=== PATIENT | male | born 1970 | race Caucasian/White ===

== ENCOUNTER 2017-10-10 09:22 | Emergency (ER) | payer MEDICARE, SELFPAY ==
[2017-10-10 09:24] VITALS: BP 162/112; PULSE 119; RESP 18; TEMP 37.2; O2SAT 99; BMI 37.8
--- NOTE | 2017-10-10 09:35 | CT_ITS ---
STUDY: CT BRAIN WITHOUT CONTRAST REASON FOR EXAM: Male, 47 years old. Headaches. Hypertension. RADIATION DOSAGE (If Supplied By Facility): CTDIvol = ( 44.99 ) mGy, DLP = ( 796.11 ) mGycm TECHNIQUE: Transaxial CT imaging of the brain was performed without administration of intravenous contrast material. Individualized dose optimization techniques were used for this CT. COMPARISON: None. FINDINGS: Normal soft tissue structures. Normal calvarium. Normal size ventricles and extra-axial spaces for the patient's age. Normal white matter tracts of the cerebral hemispheres. Normal basal ganglia and thalami. Normal brainstem. Normal cerebellum. There is no intracranial hemorrhage. There are no findings of an acute ischemic infarction. Normal visualized paranasal sinuses. CT/Brain/Head without Contrast IMPRESSION: Normal unenhanced CT scan of the brain. Electronically Signed: Hero Stanton MD at 10:38 EDT Tel [phone], Service support ,
--- NOTE | 2017-10-10 09:36 | EKG12_ITS ---
Test Reason : HYPERTENSON Blood Pressure : / mmHG Vent. Rate : 101 BPM Atrial Rate : 101 BPM P-R Int : 146 ms QRS Dur : 082 ms QT Int : 338 ms P-R-T Axes : 045 030 058 degrees QTc Int : 438 ms Sinus tachycardia Otherwise normal ECG Confirmed by RICHIE LARSON, MAURICIO ([id number]), school photograph editor SELENE BUCKLEY ([id number]) on 10/14/2017 1:47:40 PM Referred By: LELIA Confirmed By:MAURICIO QUIROZ MD
--- NOTE | 2017-10-10 09:44 | ED.VISSUMM ---
- ER Visit Summary Date of Service: 10/10/17 Chief Complaint: High blood pressure and headache History of Present Illness: The patient is a [address] Antwon Kim. He reports that he has a headache that began this morning when he woke up. Came on abruptly. It is a sharp diffuse pain that is 8 out of 10 severity. He reports he has had similar headaches multiple times in the past. States that he gets headaches approximately twice per week. He is is associated with photophobia. He has had no nausea or vomiting. No recent injury to his head. States it is 10 out of 10 at worst and 8 out of 10 currently. Patient denies any fever or chills. No numbness or weakness. No change in his vision. Physical Examination: Vitals: Stable. Afebrile. General: Well-nourished and well-developed. Head: Normocephalic atraumatic. Neck: Supple, no lymphadenopathy. No JVD. Nontender. Cardiovascular: Regular rate and rhythm. No murmurs. Respiratory: No respiratory distress. Clear to auscultation bilaterally. Abdominal: Soft, nontender, nondistended, normal bowel sounds. No guarding, rebound, or peritoneal signs. Back: Nontender. Extremities: Nontender, no edema. Skin: Normal color, no rash. Neurologic: Alert and oriented ?3. Cranial nerves II through XII are intact. Normal strength and sensation. Psych: Normal affect. Test Results: CBC is normal. Chem-7 is more for chloride [address] brain is normal. CTA head shows normal three affiliated of [place] with no aneurysm. EKG is sinus tach at [address] changes. Emergency Department Course and Treatment: Patient had an IV placed. He was given Dilaudid and Zofran for his headache. He is resting comfortably. His blood pressure has decreased from 179/97 to 150/103. Treatment Plan: Patient will be discharged instructions to follow-up with his primary care physician within a week for repeat check of his blood pressure. Return to the emergency department for any worsening symptoms. Disposition: To home in improved and stable condition. Impression: 1. Cephalgia. 2. Hypertension. This note was generated with [employer] software. It may contain incorrect words, spelling, and punctuation that were not noted in review of the chart prior to signing ED Disposition - Plan for ED Patient: Chief Complaint: Hypertension Instructions: ED HTN Established Referrals: Antwon Kim [Primary Care Provider] - 1 Week
[2017-10-10] MEDS: 0.9% Normal Saline 1,000 ML 150 ML IV (09:47)
[2017-10-10] MEDS: HYDROmorphone 1 MG/ML Syringe IV ×2 (09:47→11:16)
[2017-10-10] MEDS: Ondansetron 4 MG/2 ML Vial IV (09:47)
[2017-10-10 09:59] LABS: Absolute Lymphocyte Count 1.84 X10^3/ul (0.83-4.51); Absolute Neutrophil Count 5.7 X10^3/uL (2.0-7.7); Basophil# 0.04 X10^3/uL; Basophil% 0.5 % (0-1); Eosinophil# 0.09 X10^3/uL; Eosinophils% 1.1 % (0-5); Hematocrit 45.8 % (40-54); Lymphocyte # 1.84 X10^3/ul (4.0); Lymphocyte % 22.1 % (19-41); Mean Corp Hgb Conc 32.8 g/gl (32-36); Mean Corpuscular Hgb 29.4 pg (27.0-32.0); Mean Corpuscular Volume 89.8 fL (80-94); Mean Platelet Vol. 11.1 fl (6.2-12.0); Monocyte% 8.4 % (0-10); Neutrophil # 5.65 X10^3/uL (2.7-7.7); Neutrophil % 67.7 % (47-70); Platelet Count 157 K/mm3 (150-450); RBC Distribution Width CV 13.9 % (11.6-14.6); RBC Distribution Width SD 45.7 fl (35.1-43.9); White Blood Count 8.3 K/mm3 (4.4-11.0)
[2017-10-10 10:00] LABS: POSITIVE COUNT NO; POSITIVE DIFFERENTIAL NO; POSITIVE MORPHOLOGY NO
[2017-10-10 10:19] LABS: Anion Gap 7 (5-15); BUN 17 mg/dL (7-18); BUN/Creat Ratio 13.7 RATIO (10-20); Chloride 108 mmol/L (98-107); Creatinine, Serum 1.24 mg/dL (0.70-1.30); EST Glomerular Filtration Rate 66 mL/min (>60); Est Glom Filt Rate - Afr Amer 80 mL/min (>60); Estimated Creatinine Clearance 68.11 ml/min; Glucose 112 mg/dL (74-106); Potassium 3.7 mmol/L (3.5-5.1); Sodium Level 143 mmol/L (136-145)
[2017-10-10 10:45] VITALS: BP 179/97; PULSE 98; RESP 18; O2SAT 97
--- NOTE | 2017-10-10 11:10 | CT_ITS ---
STUDY: CTA OF THE BRAIN REASON FOR EXAM: Male, 47 years old. Headaches. Hypertension. RADIATION DOSAGE (If Supplied By Facility): CTDIvol = ( 17.48 ) mGy, DLP = ( 412.56 ) mGycm TECHNIQUE: CT angiography was performed with a multi-detector CT scanner. Data acquisition was obtained from the skull base through the vertex following intravenous administration of 100 ml of Isovue 370. MIP images were reconstructed from the axial data set. Post-processing of the angiographic images was performed, with multiplanar reformation and 3D reconstruction. Individualized dose optimization techniques were used for this CT. COMPARISON: None. FINDINGS: Normal bilateral petrous carotid arteries. Normal right cavernous carotid artery with a normal supraclinoid bifurcation. Normal left cavernous carotid artery with a normal supraclinoid bifurcation. Normal right A1 segments of the anterior cerebral artery. Normal left A1 segments of the anterior cerebral artery. Normal intact anterior communicating artery (ACOM). Normal bilateral A2 segments of the anterior cerebral arteries. Normal right M1 and M2 segments of the middle cerebral arteries, with a normal M1 bifurcation. Normal left M1 and M2 segments of the middle cerebral arteries, with a normal M1 bifurcation. Normal right posterior communicating artery (PCOM). Normal left posterior communicating artery (PCOM). Normal bilateral vertebral arteries. Normal basilar artery with a normal basilar bifurcation. The visualized bilateral superior cerebellar (SCA) arteries are normal. Normal bilateral P1, P2 and visualized P3 segments of the posterior cerebral arteries. There is no demonstrated aneurysm of the [place]. There is no demonstrated abnormality of the visualized brain. CT/CTA Head W/WO Contrast IMPRESSION: Normal [place] without a demonstrated aneurysm or hemodynamically significant stenosis. Electronically Signed: Hero Stanton MD at 12:26 EDT Tel [phone], Service support ,
[2017-10-10 11:15] VITALS: BP 163/91; PULSE 94; RESP 18; O2SAT 98
[2017-10-10 11:18] VITALS: BP 150/103; PULSE 89; RESP 16; O2SAT 98
[2017-10-10 13:30] VITALS: BP 169/128; PULSE 95; RESP 14; O2SAT 98
== END 2017-10-10 13:31 | disposition home or self-care (01) ==
PROVIDERS: Emergency Provider Emergency Medicine; Family Provider Family Medicine; PCP Family Medicine
DX: R51 Headache (principal); H53.149 Visual discomfort, unspecified; I10 Essential (primary) hypertension; Z79.899 Other long term (current) drug therapy
CPT/HCPCS: 70450; 70496; 80048; 85025; 93005; 96361; 96374; 96375; 96376; 99284; J7030; Q9967; A4216; J2405

== ENCOUNTER → 2018-07-17 07:53 | Outpatient (CLI) | payer MEDICARE, SELFPAY ==
[2018-07-01 07:58] VITALS: BMI 39.9
--- NOTE | 2018-07-17 11:37 | PFT ---
INTRODUCTION: The patient is a 47-year-old male that presents for pulmonary function testing secondary to a diagnosis of shortness of breath. Respiratory therapy reports good patient effort. Bronchodilators were used during testing. INTERPRETATION: Forced expiration spirometry demonstrates no evidence of a large airways obstructive ventilatory defect. There was no significant response to aerosolized bronchodilators. Spirograms are of good quality and plateau normally. Body plethysmography was performed and reveals a decreased TLC to 4.35 L, 71% of predicted, indicative of a mild restrictive ventilatory defect. Diffusing capacity by single breath CO is mildly reduced at 64% of predicted. IMPRESSION: These pulmonary function studies demonstrate the presence of a mild restrictive ventilatory impairment with an associated symmetric reduction in diffusing capacity. There are no previous pulmonary function studies available for comparison.
--- OUTSIDE RECORDS SUMMARY | 2018-09-20 14:52 | XMS RPT_ITS ---
:1970 Author Organization OHIP Support Name Relationship Address Phone D Unavailable Unavailable Unavailable WALESKALANI Unavailable [address] + [place] [address] D Unavailable Unavailable Unavailable WALESKALANI Unavailable [address] + [place] [address] D Unavailable Unavailable Unavailable WALESKALANI Unavailable [address] + [place] [address] D Unavailable Unavailable Unavailable WALESKALANI Unavailable [address] + [place] [address] NOT GIVEN Unavailable Unavailable Unavailable PRERNA GALEANO Unavailable [address] + [place], [place] [phone] NOT GIVEN Unavailable Unavailable Unavailable PRERNA GALEANO Unavailable [address] + [place], [place] [phone] NOT GIVEN Unavailable Unavailable Unavailable PRERNA GALEANO Unavailable [address] + [place], [place] [phone] NOT GIVEN Unavailable Unavailable Unavailable PRERNA GALEANO Unavailable [address] + [place], [place] [phone] NOT GIVEN Unavailable Unavailable Unavailable PRERNA GALEANO Unavailable [address] + [place], [place] [phone] NOT GIVEN Unavailable Unavailable Unavailable PRERNA GALEANO Unavailable [address] + [place], [place] [phone] NOT GIVEN Unavailable Unavailable Unavailable PRERNA GALEANO Unavailable [address] + [place], [place] [phone] D Unavailable Unavailable Unavailable WALESKALANI Unavailable [address] + [place] [address] Care Team Providers Name Role Phone LATOUF, BUTROS MD Referring Unavailable SAGAR REYES MD Admitting Unavailable SAGAR REYES MD Attending Unavailable SAGAR REYES MD Primary Care Unavailable ANTWON KIM Consulting Unavailable PROVIDER, UNKNOWN Consulting Unavailable PROVIDER, UNKNOWN Consulting Unavailable PROVIDER, UNKNOWN Consulting Unavailable SAGAR REYES MD Admitting Unavailable SAGAR REYES MD Attending Unavailable SAGAR REYES MD Primary Care Unavailable ANTWON KIM Consulting Unavailable PROVIDER, UNKNOWN Consulting Unavailable PROVIDER, UNKNOWN Consulting Unavailable PROVIDER, UNKNOWN Consulting Unavailable SAGAR REYES MD Admitting Unavailable SAGAR REYES MD Attending Unavailable SAGAR REYES MD Primary Care Unavailable ANTWON KIM Consulting Unavailable PROVIDER, UNKNOWN Consulting Unavailable PROVIDER, UNKNOWN Consulting Unavailable PROVIDER, UNKNOWN Consulting Unavailable SAGAR REYES MD Admitting Unavailable SAGAR REYES MD Attending Unavailable SAGAR REYES MD Primary Care Unavailable ANTWON KIM Consulting Unavailable PROVIDER, UNKNOWN Consulting Unavailable PROVIDER, UNKNOWN Consulting Unavailable PROVIDER, UNKNOWN Consulting Unavailable SAGAR REYES MD Admitting Unavailable SAGAR REYES MD Attending Unavailable SAGAR REYES MD Primary Care Unavailable ALLEN, ANTWON Consulting Unavailable TESSIE HENDERSON MD Referring Unavailable PROVIDER, UNKNOWN Consulting Unavailable PROVIDER, UNKNOWN Consulting Unavailable PROVIDER, UNKNOWN Consulting Unavailable SAGAR REYES MD Admitting Unavailable SAGAR REYES MD Attending Unavailable SAGAR REYES MD Primary Care Unavailable ALLEN, ANTWON Consulting Unavailable PROVIDER, UNKNOWN Consulting Unavailable PROVIDER, UNKNOWN Consulting Unavailable PROVIDER, UNKNOWN Consulting Unavailable Patrica GONZALEZ Admitting Unavailable Patrica GONZALEZ Attending Unavailable Patrica GONZALEZ Primary Care Unavailable ANTWON KIM Consulting Unavailable PROVIDER, UNKNOWN Consulting Unavailable PROVIDER, UNKNOWN Consulting Unavailable PROVIDER, UNKNOWN Consulting Unavailable Adeel Whitley Attending Unavailable Antwon Kim Referring Unavailable Adeel Whitley Attending Unavailable Adeel Whitley Referring Unavailable Sagar Reyes Primary Care Unavailable Sen Umana Attending Unavailable Antwon Kim Primary Care Unavailable Adeel Whitley Attending Unavailable Adeel Whitley Referring Unavailable Sagar Reyes Primary Care Unavailable Sandeep Kim D.O. Attending Unavailable Adeel Whitley Referring Unavailable PROBLEMS PROBLEMS DATE TYPE CONDITION / CODE ATTENDING STATUS SOURCE 2018 Unknown R04.2 - Hemoptysis Adeel Whitley Active [place] / R04.2(ICD-10) [facility] Repository 2018 Unknown R07.9 - Chest pain, Adeel Whitley Active [place] unspecified / Community R07.9(ICD-10) Hospital Repository 2018 Unknown R06.02 - Shortness Sandeep Kim, Active [place] of breath / D.O. Community R06.02(ICD-10) Hospital Repository 03/24/2018 Principle Obesity, KALISETTI, Active [facility] [place] Diagnosis unspecified / SAGAR MD [facility] E669(ICD-10) Hospital Repository 03/24/2018 Principle Chronic kidney KALISETTI, Active [facility] [place] Diagnosis disease, stage 3 [facility] (moderate) / Hospital N183(ICD-10) Repository 03/03/2018 Admitting Obstructive sleep KALISETTI, Active [facility] [place] Diagnosis apnea (adult) [facility] (pediatric) / Hospital G4733(ICD-10) Repository 03/03/2018 Principle Obstructive sleep KALISETTI, Active [facility]ine[facility] [place] Diagnosis apnea (adult) [facility] (pediatric) / Hospital G4733(ICD-10) Repository 01/20/2018 Principle Idiopathic KALISETTI, 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 / Hospital J8403(ICD-10) Repository 01/20/2018 Secondary Essential (primary) KALISETTI, Active [facility] [place] Diagnosis hypertension / SAGAR [facility] I10(ICD-10) Hospital Repository 01/20/2018 Secondary Obesity, KALISETTI, Active Irineo [place] Diagnosis unspecified / [facility] E669(ICD-10) Hospital Repository PROCEDURES PROCEDURES No Procedure Records FoundRESULTS RESULTS 6 MINUTE WALK TEST Observed: 07/25/2018 Status: F Source: [place] 5:54 AM [facility] REPOSITORY [facility] Pulmonary Services/Neurology [address] [place] [address] MR#: [id number] Acct: [id number] Name: DONAVAN GALEANO Rep #: [id number] : 1970 48 From: Adeel Whitley MD Referring Dr: Adeel Whitley MD Date: Ordering Dr: Sex: M C Location: CT PSN 6 Minute Walk Test - 6 Minute Walk Test 6 Minute Walk Test: 6 Minute Walk Test PSN:6-Minute Walk Test Start: 07/24/18 09:41 Freq: Status: Active Protocol: RESP.6MINW Document 07/24/18 09:41 CESAR (Rec: 07/24/18 09:43 CESAR [id number]) 6 Minute Walk Test Date Performed 07/24/18 Time Performed 09:00 Height 5 ft 4 in Weight: 107.501 kg Weight in Pounds 237.[address]: Adeel Whitley Assistive device used: None Pre-test Oxygen Delivery Method Room Air Pulse Ox (%) 95 Pulse Rate (60-100 beats/min) 104 H Dyspnea Maryjo Scale (0-10) 1 Exertion Maryjo Scale (6-20) 6 1st minute Oxygen Delivery Method Room Air Pulse Ox (%) 96 Pulse Rate (60-100 beats/min) 104 H 2nd minute Oxygen Delivery Method Room Air Pulse Ox (%) 94 Pulse Rate (60-100 beats/min) 104 H 3rd minute Oxygen Delivery Method Room Air Pulse Ox (%) 96 Pulse Rate (60-100 beats/min) 118 H 4th minute Oxygen Delivery Method Room Air Pulse Ox (%) 92 Pulse Rate (60-100 beats/min) 121 H 5th minute Oxygen Delivery Method Room Air Pulse Ox (%) 93 Pulse Rate (60-100 beats/min) 122 H 6th minute Oxygen Delivery Method Room Air Pulse Ox (%) 92 Pulse Rate (60-100 beats/min) 123 H Dyspnea Maryjo Scale (0-10) 4 Exertion Maryjo Scale (6-20) 14 Post-test Oxygen Delivery Method Room Air Pulse Ox (%) 96 Pulse Rate (60-100 beats/min) 106 H Full Laps Walked 11 Partial Lap, Number of Tiles Walked 15 Total Distance Walked (ft) 664 - Interpretation Interpretation: The patient was able to ambulate only 664 feet over the course of 6 minutes on room air with no assistive devices or breaks. The patient experienced a desaturation as low as 92%, but was tachycardic throughout testing with a peak heart rate of 123 bpm. These findings are consistent with a cardiovascular limitation exercise tolerance. - Recommendations Recommendations: No supplemental oxygen is indicated at this time. 07/25/18 0554 <Electronically signed by Adeel Whitley MD> Date Adeel Whitley MD CC: Date Dictated: 07/24/181627 Date Transcribed: 07/24/181627 Hoop Bending Machine Operator: Adeel Whitley MD Signed CHEST WITHOUT Observed: 2018 Status: F Source: [place] CONTRAST 7:54 AM [facility] REPOSITORY [facility] Imaging Services [address] [place] [address] Chest without Contrast MR#: [id number] Acct: [id number] Name: DONAVAN GALEANO Rep #: [id number] : 1970 M 48 From: Noman Tavera MD PCP: Sagar Reyes MD Status: REG CLI Study: Chest without Contrast Date of Exam: 07/24/18 Exam# [id number] Ordering Dr: Adeel Whitley MD STUDY: CT CHEST WITHOUT CONTRAST REASON FOR EXAM: Male, 48 years old. Hemoptysis with wheezing and shortness of breath RADIATION DOSAGE (If Supplied By Facility): CTDIvol = ( 19.21 ) mGy, DLP = ( 686.28 ) mGycm TECHNIQUE: Transaxial imaging was performed without the administration of intravenous contrast material. Multiplanar coronal and sagittal images were reformatted. Individualized dose optimization techniques were used for this CT. COMPARISON: 10/12/2017 FINDINGS: Normal expansion of the lungs. No airspace consolidation or pleural effusion. Mild subpleural scarring with subpleural calcification along the right minor fissure is noted. Minimal subpleural scarring in the right lateral costophrenic angle with linear calcification also demonstrated. No localized groundglass opacity. No endobronchial lesions detected. There is no demonstrated pleural abnormality. Normal heart and pericardium. Minor coronary artery atherosclerosis. Normal mediastinum. Normal hilar regions. Normal unenhanced pulmonary arteries. Normal aorta arch and descending thoracic aorta. There are multi-level degenerative changes of the thoracic spine. There is no demonstrated abnormality of the visualized upper abdomen. CT/Chest without Contrast IMPRESSION: 1. No airspace consolidation or pleural effusion. No pulmonary nodule detected. 2. Mild partially calcified fibrotic bands of the lateral right lung. 3. Mild coronary artery atherosclerosis. Electronically Signed: Noman Tavera MD at 9:43 EST , Service support , CC: Adeel Whitley MD; Sagar Reyes MD Hoop Bending Machine Operator: Signed PULMONARY FUNCTION Observed: 07/17/2018 Status: F Source: [place] TEST 11:39 AM [facility] REPOSITORY [facility] Pulmonary Services/Neurology [facility] [place] [address] MR#: [id number] Acct: [id number] Name: DONAVAN GALEANO Rep #: [id number] : 1970 47 From: Sandeep Kim DO Referring Dr: Adeel Whitley MD Status: REG CLI Ordering Dr: Date: Location: [facility] Sex: M C INTRODUCTION: The patient is a 47-year-old male that presents for pulmonary function testing secondary to a diagnosis of shortness of breath. Respiratory therapy reports good patient effort. Bronchodilators were used during testing. INTERPRETATION: Forced expiration spirometry demonstrates no evidence of a large airways obstructive ventilatory defect. There was no significant response to aerosolized bronchodilators. Spirograms are of good quality and plateau normally. Body plethysmography was performed and reveals a decreased TLC to 4.35 L, 71% of predicted, indicative of a mild restrictive ventilatory defect. Diffusing capacity by single breath CO is mildly reduced at 64% of predicted. IMPRESSION: These pulmonary function studies demonstrate the presence of a mild restrictive ventilatory impairment with an associated symmetric reduction in diffusing capacity. There are no previous pulmonary function studies available for comparison. 07/17/181138 <Electronically signed by Sandeep Kim DO> Date Sandeep Kim DO CC: Adeel Whitley MD; Sagar Reyes MD Date Dictated: 01/18/19 1137 Date Transcribed: 07/17/181136 Hoop Bending Machine Operator: MARIO Signed PULMONARY VISIT REPORT Observed: 07/01/2018 Status: F Source: [place] 8:35 AM [facility] REPOSITORY [facility] [place] [address] [place] [address] OFFICE VISIT Date of Service: 07/01/18 MR#: [id number] Acct: [id number] Name: DONAVAN GALEANO Rep #: [id number] : 1970 Provider: Adeel Whitley MD Age/Sex: 47/M Location: [facility] Status: Signed Assessment AND Plan Problems 1. Shortness of breath R06.02 2. Hemoptysis R04.2 3. Pleurodynia R07.81 4. 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 Patient has continued to have shortness of breath and chest pain since that time. No underlying etiology is noted in patient's [facility] documentation. Will obtain a CT scan of the chest for evaluation of the right lower lobe, complete pulmonary function test for quantification and clarification of lung function and a walking oximetry to evaluate for exertional hypoxemia and distance travel. Patient is to be initiated on CPAP therapy per recent sleep study. Patient can be followed in our office if requested by PCP. Await results of CPAP therapy. Obtain CT chest, complete PFT and walking oximetry Orders Orders: Medications New: HPI Shortness of breath: Chief Complaint: Shortness of breath Details: Patient is a 47-year-old male, currently under the care of Dr. Davalos, presents as a new patient evaluation secondary to a history of pulmonary hemosiderosis and shortness of breath. Patient reports that he had an extensive workup at [facility] approximately 5-6 years ago and was diagnosed with pulmonary hemosiderosis. Patient states that since that time he has had shortness of breath that appears to be stable. Patient also reports a right-sided chest pain that wraps around his chest in the area of the previous VATS procedure. Patient states this is sharp in nature, 7 out of 10 and constant. Patient does not report any exacerbating or relieving factors. Overall, patient feels subjectively unchanged since this time. Patient is not currently on any inhalers. Patient does state that he was recently diagnosed with obstructive sleep apnea, but has not been initiated on therapy. Patient states he falls asleep frequently throughout the day and wakes feeling unrested. Patient states that he can occasionally have hemoptysis in the morning. Patient describes this as minimal streaks of sputum. This is not associated with epistaxis. 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 Patient denies any exposure to asbestos, TB, pets or travel. Documentation reviewed 20 pages of documentation were reviewed from patient's primary care physician. Patient reportedly had been reporting fatigue and was sent for a CPAP titration and found to have severe sleep apnea. Patient was also diagnosed with pulmonary hemosiderosis. Patient does have a history of chronic pain syndrome requiring fentanyl patch and amitriptyline. There is no documentation reporting patient compliance with IHSAN therapy. Patient was titrated to CPAP 14 cm of water and noted to have a residual AHI of 3.9. Total untreated AHI of 30 with slight worsening during REM and no significant hypoxemia. No documentation referred to the probable etiology of pulmonary hemosiderosis HPI Comments Details: Intake Vital Signs07/01/18 Blood Pressure 147/100 H H Intake Visit Reasons: Shortness of breath DME Vendor: [employer] Accompanied by: Self Allergies No Known Allergies Allergy (Verified 07/01/18 07:59) Medications Amitriptyline HCl [Elavil] 100 mg PO QHS 10/10/17 [History Confirmed 07/01/18] Fentanyl 1 ea TD X1 10/10/17 [History Confirmed 07/01/18] Folic Acid 1 mg PO DAILY@0800 10/10/17 [History Confirmed 07/01/18] Lisinopril/Hydrochlorothiazide [Zestoretic 20-12.5 mg Tablet] 1 ea PO DAILY 10/10/17 [History Confirmed 07/01/18] metoprolol tartrate 50 mg tablet 50 mg PO BID 07/01/18 [History Confirmed 07/01/18] PFSH Medical History CKD (chronic kidney disease) stage 3, GFR 30-59 ml/min (Chronic) Essential (primary) hypertension (Chronic) IHSAN (obstructive sleep apnea) (Chronic) Obesity (Chronic) Pulmonary hemosiderosis (Chronic) Surgical History History of appendectomy (Resolved) History of lung biopsy (Resolved) Family History Father COPD (chronic obstructive pulmonary disease) Mother Multiple sclerosis Sister Melanoma Social History household members: children Smoking Status: Never smoker alcohol intake: never substance use type: does not use Review of Systems Const CONSTITUTIONAL: Positive daytime sleepiness and fatigue; negative anorexia, body ache, chills, fever(s), night sweats, oral thrush, stops breathing during sleep, weight loss, sleeping in chair, weight loss, weight gain, frequent colds, seasonal allergies, other, headache(s) or orthopnea EETM Ear Nose Throat Mouth: Positive hearing normal; negative hoarseness, dry mouth in morning, change in vision, itchy eyes, eye pain, swallowing Difficulty, ear pain, headache(s), mouth pain, nasal congestion, nasal discharge, sinus pain, sinus pressure, sore throat, other, hard of hearing, nose bleed or post nasal drip Cardio Cardiovascular: Negative chest pain, chest pain at rest, chest pain with activity, irregular heart rhythm, edema, shortness of breath when lying down, palpitations, other or murmur Resp Respiratory: Positive shortness of breath shortness of breath: Positive with activity and other (resting ); negative as per HPI, pain with cough, wheezing, chest congestion, cough, chest tightness, pain on inspiration, inhalers, increase use of rescue inhalers, snoring, apnea or other Gastro Gastrointestional: Negative bloody stools, change in appetite, difficulty swallowing, reflux, hematemesis, melena stool, loose stool, constipation or other Genitourinary: Negative blood in urine, nocturia, pain with urination or other Musc Musculoskeletal: Negative body pain, back pain, neck pain or other Skin/Breast Skin/Breast: Negative dry skin, itching, unusual bruising, breast lump, other or rash Neuro Neurological: Negative restless legs, confusion, weakness or other Psych Psychocological: Negative abnormal sleep pattern, anxiety, thoughts of hurting self/others, hopelessness or other Lymph Lymphatic: Negative easy bleeding, easy bruising, other or swollen lymph nodes Exam Const Constitutional: Positive conversant, cooperative, in no acute respiratory distress, healthy appearing, well developed, well nourished, good hygiene, obese and appears older than stated age; negative smells of smoke, wearing supplemental oxygen or ill appearing Head Head: Positive normocephalic and atraumatic; negative cyanosis of lips/distal nose, frontal sinus tenderness or maxillary sinus tenderness Eyes Eye: Positive clear conjunctiva; negative nystagmus, scleral abnormality or cataract present Ears Ear: Positive hearing normal and external ears normal; negative hard of hearing Nose Nose: Positive external nose normal, septum normal and no nasal discharge; negative epistaxis or nasal polyp Mouth Mouth: Positive oral mucosae normal, no lesions and crowded posterior oropharynx; negative post nasal drip, malodorous breath or oral thrush present Mallampati Score: III: Mallampati Score Neck Neck: Positive normal visual inspection, full ROM, trachea midline and male neck greater than 43 cm (17 in); negative lymphadenopathy or JVD Chest Wall Chest: Positive normal inspection of the chest and symmetric chest movement; negative crepitus or tenderness Resp lung sounds: Positive normal expiratory time, diminished and normal respiratory effort; negative wheezes, rhonchi, rales, use of accessory muscles, wheeze present on forced exhalation or dullness to percussion Cardio Cardiac: Positive regular rate, regular rhythm, S1 normal and S2 normal; negative murmur, rub or gallop GI GI: Positive normal to inspection, normal bowel sounds and obese; negative distended, ascites or epigastric tenderness Genitourinary: Positive deferred Musc Musculoskeletal: Positive steady gait; negative using an assistive device for ambulation, kyphosis or scoliosis Skin Pulmonary Skin Exam: Positive intact; negative rash, lesion, ulcers, erythema, scaly or dermal atrophy Pulses Pulse: Yes radial pulses present Extremities Extremities: Yes capillary refill normal, No clubbing, No cyanosis, No edema, No stasis dermatitis Neuro Neurologic: Yes conversant, Yes no focal neuro deficits, Yes normal concentration, Yes understands questions, Yes cooperative, Yes normal cognition, Yes normal coordination Lymph Lymphatic: No lymphadenopathy Psych Appearance: Positive grossly normal Mental Status: Positive mental status grossly normal Mood: Positive congruent mood Affect: Positive normal affect Coding Level of Care Code Off vis,new,level 5 Diagnoses Shortness of breath R06.02 Hemoptysis R04.2 Pleurodynia R07.81 Chest pain type: pleurodynia IHSAN (obstructive sleep apnea) G47.33 07/01/18 0835 <Electronically signed by Adeel Whitley MD> Date [facility] MD [facility] Signature: Date (if applicable) CC: Sagar Reyes MD; Antwon Kim MD MR THORACIC SP W/O Observed: 06/10/2018 Status: F Source: [facility] CONTRAST 9:04 AM [place] [address] Patient: DONAVAN GALEANO Phone#: : 1970 Age: 47 Gender: M Pt. Type: Out Account: [id number] Location: [facility] Ordering: SERA BHAT Exam Date: 06/10/2018/6:31 Family Phys: Charge Code: [id number] Physician: [facility] Order #: [id number] DLP Dose#: PROCEDURE: MRI THORACIC SPINE WITHOUT CONTRAST COMPARISON: None. INDICATIONS: Mid back pain with right side chest pain TECHNIQUE: A variety of imaging planes and parameters were utilized for visualization of suspected pathology. Images were performed without contrast. FINDINGS: PARASPINAL AREA: Normal with no visible mass. DISCS: Desiccation and disc height loss from T4- T5 to T8-9. BONES: Vertebral bodies are maintained in height. Schmorl's nodes are seen at multiple levels. There is edema in the anterior lateral T12 vertebral body corresponding to a large T11-T12 osteophyte. Flowing confluent osteophytes are seen from T9-T12. Disc height loss contributes to moderate bilateral foraminal narrowing at T10-11 and mild bilateral foraminal narrowing at T11-12. CORD: Normal caliber, contour, and signal intensity. OTHER: Negative. CONCLUSION: 1. Multilevel disc height loss. Moderate foraminal narrowing noted at T10-11. 2. Edema in the anterior lateral T12 vertebral body corresponding to the inferior attachment of an osteophyte. 3. T9-T12 flowing anterior osteophytes consistent with diffuse idiopathic skeletal hyperostosis. Dictated by: Anya Ny MD on 06/11/2018 at 12:52 Approved by: Anya Ny MD on 06/11/2018 at 12:52 URINALYSIS Collected: 03/24/2018 Status: F Source: [facility] 12:49 PM [facility] REPOSITORY TYPE CODE TESTS RESULT OUT OF REFERENCE UNITS RANGE LAB URINALYSIS (LOINC) URINALYSIS Result Comment: URINALYSIS LAB Specimen Type(LOINC) Specimen R Type LAB Color(LOINC) NORMAL: YELLOW Color p.yel LAB Clarity(LOINC) NORMAL: CLEAR Clarity clear LAB ph(LOINC) NORMAL: 5.0-8.0 ph 8 LAB Protein(LOINC) NORMAL: NEGATIVE Protein NEG LAB Glucose(LOINC) NORMAL: NORMAL Glucose NORM LAB Ketone(LOINC) NORMAL: NEGATIVE Ketone NEG LAB Bilirubin(LOINC) NORMAL: NEGATIVE Bilirubin NEG LAB Blood(LOINC) NORMAL: NEGATIVE Blood NEG LAB Urobilinog(LOINC) NORMAL: NORMAL Urobilinog NORM LAB Sp [place](LOINC) NORMAL: 1.010-1.030 Sp [place] 1.010 LAB Nitrite(LOINC) NORMAL: NEGATIVE Nitrite NEG LAB Leukocytes(LOINC) NORMAL: NEGATIVE Leukocytes NEG LAB Microscopic(LOINC ) Microscopic NOT INDICATED Performed By: #### [id number] #### [facility],[address] [place] [address] BMP WITH EGFR Collected: 03/24/2018 Status: F Source: [facility] 12:49 PM [facility] REPOSITORY TYPE CODE TESTS RESULT OUT OF RANGE REFERENCE UNITS LAB BMP with eGFR(LOINC) BMP with eGFR Result Comment: BASIC METABOLIC PANEL LAB SODIUM(LOINC) 136 - 145 mmol/l SODIUM 137 LAB POTASSIUM(LOINC) 3.5 - 5.1 mmol/L POTASSIUM 4.4 LAB CHLORIDE(LOINC) 98 - 107 mmol/L CHLORIDE 102 LAB CO2(LOINC) 21.0 - mmol/L 31.0 CO2 26.8 LAB GLUCOSE(LOINC) 74 - 106 mg/dl GLUCOSE High 111 LAB BUN(LOINC) 6 - 20 mg/dl BUN 12 LAB CREATININE(LOINC) 0.7 - 1.3 mg/dl CREATININE 1.0 LAB CALCIUM(LOINC) 8.6 - mg/dl 10.2 CALCIUM 9.7 LAB ANION GAP(LOINC) 10 - 20 mmol/L ANION GAP 13 LAB AGE(LOINC) years AGE 47 LAB eGFR(LOINC) 60 - 999 ML/MINUTE eGFR >60 LAB eGFR(AA)(LOINC) 60 - 999 ML/MINUTE eGFR(AA) >60 Result Comment: ACCORDING TO THE NATIONAL KIDNEY DISEASE EDUCATION PROGRAM(NKDE), A NORMAL eGFR IS A VALUE GREATER THAN OR EQUAL TO 60 ML/MIN/1.73 SQ METERS. CHRONIC KIDNEY DISEASE: <60mL/MIN/1.73 SQ METERS KIDNEY FAILURE: <15mL/MIN/1.73 SQ METERS THIS TEST SHOULD ONLY BE USED FOR PATIENTS 18 YEARS OF AGE AND OLDER. Performed By: #### [id number] #### [facility],[address] [place] [address] CMP WITH EGFR Collected: 01/20/2018 Status: F Source: [facility] 2:47 PM [facility] REPOSITORY TYPE CODE TESTS RESULT OUT OF RANGE REFERENCE UNITS LAB CMP with eGFR(LOINC) CMP with eGFR Result Comment: COMPREHENSIVE METABOLIC PANEL LAB SODIUM(LOINC) 136 - 145 mmol/l SODIUM Low 135 LAB POTASSIUM(LOINC) 3.5 - 5.1 mmol/L POTASSIUM 4.3 LAB CHLORIDE(LOINC) 98 - 107 mmol/L CHLORIDE Low 96 LAB CO2(LOINC) 21.0 - mmol/L 31.0 CO2 30.5 LAB GLUCOSE(LOINC) 74 - 106 mg/dl GLUCOSE 105 LAB BUN(LOINC) 6 - 20 mg/dl BUN High 24 LAB CREATININE(LOINC) 0.7 - 1.3 mg/dl High CREATININE 1.8 LAB AST/SGOT(LOINC) 13 - 39 U/L AST/SGOT 15 LAB ALK PHOS(LOINC) 38 - 126 U/L ALK PHOS 112 LAB CALCIUM(LOINC) 8.6 - mg/dl 10.2 CALCIUM 9.4 LAB TOTAL 6.4 - 8.3 g/dl PROTEIN(LOINC) TOTAL PROTEIN 7.0 LAB ALBUMIN(LOINC) 3.4 - 4.8 g/dL ALBUMIN 4.6 LAB GLOBULIN(LOINC) 1.5 - 3.8 G/DL GLOBULIN 2.4 LAB A/G RATIO(LOINC) 0.9 - 1.6 A/G High RATIO 1.9 LAB TOTAL BILI(LOINC) 0.0 - 1.5 mg/dl TOTAL BILI 0.6 LAB B/C RATIO(LOINC) 0 - 30 ratio B/C RATIO 13 LAB ALT/SGPT(LOINC) 10 - 40 U/L ALT/SGPT 19 LAB ANION GAP(LOINC) 10 - 20 mmol/L ANION GAP 13 LAB AGE(LOINC) years AGE 47 LAB eGFR(LOINC) 60 - 999 ML/MINUTE eGFR Low 40 LAB eGFR(AA)(LOINC) 60 - 999 ML/MINUTE eGFR(AA) Low 49 Result Comment: ACCORDING TO THE NATIONAL KIDNEY DISEASE EDUCATION PROGRAM(NKDE), A NORMAL eGFR IS A VALUE GREATER THAN OR EQUAL TO 60 ML/MIN/1.73 SQ METERS. CHRONIC KIDNEY DISEASE: <60mL/MIN/1.73 SQ METERS KIDNEY FAILURE: <15mL/MIN/1.73 SQ METERS THIS TEST SHOULD ONLY BE USED FOR PATIENTS 18 YEARS OF AGE AND OLDER. Performed By: #### [id number] #### [place] [address] LIPID PROFILE Collected: 01/20/2018 Status: F Source: [facility] 2:47 PM [facility] REPOSITORY TYPE CODE TESTS RESULT OUT OF REFERENCE UNITS RANGE LAB LIPID PROFILE(LOIN C) LIPID PROFILE Result Comment: LIPID PROFILE LAB TRIGLYCERIDE(LOINC) 0 - 150 mg/dl High TRIGLYCERIDE 173 LAB CHOLESTEROL(LOINC) 0 - 200 mg/dl CHOLESTEROL 166 LAB HDL(LOINC) 40 - 60 mg/dl HDL Low 38 LAB CHOL/HDL(LOINC) 0.0 - 5.0 CHOL/HDL 4.4 LAB LDL(LOINC) 0 - 129 mg/dl LDL 93 Performed By: #### [id number] #### [place] [address] CBC Collected: 01/20/2018 Status: F Source: [facility] 2:47 PM [facility] REPOSITORY TYPE CODE TESTS RESULT OUT OF RANGE REFERENCE UNITS LAB CBC(LOINC) CBC Result Comment: CBC-COMPLETE BLOOD COUNT LAB WBC(LOINC) 4.5 - 10.8 x 10EE3/UL WBC 10.5 LAB RBC(LOINC) 4.50 - x 10EE6/UL 6.00 RBC 5.25 LAB HEMOGLOBIN(LOINC 13.0 - g/dl ) 17.5 HEMOGLOBIN 16.1 LAB HEMATOCRIT(LOINC 40.0 - % ) 52.0 HEMATOCRIT 47.7 LAB MCV(LOINC) 81 - 98 fl MCV 91 LAB MCH(LOINC) 27 - 33 pg MCH 31 LAB MCHC(LOINC) 32 - 36 X10 3 MCHC 34 LAB RDW/CV(LOINC) 12.0 - % 15.6 RDW/CV 14.5 LAB PLATELET(LOINC) 150 - 450 x10EE3/UL PLATELET 224 LAB MPV(LOINC) 6.4 - 10.5 fl MPV High 10.8 Result Comment: AUTOMATED DIFFERENTIAL LAB NEUT %(LOINC) 46.0 - 76.0 % NEUT % 55.0 LAB LYMPH %(LOINC) 20.0 - 45.0 % LYMPH % 33.5 LAB MONOS %(LOINC) 0.0 - 10.0 % MONOS % 7.4 LAB EO %(LOINC) 0.0 - 7.0 % EO % 3.2 LAB BASO %(LOINC) 0.0 - 2.0 % BASO % 0.9 LAB Lymph #(LOINC) 0.80 - 2.80 x10EE3/U L Lymph # High 3.50 LAB Neut #(LOINC) 1.50 - 7.10 x10EE3/U L Neut # 5.80 LAB [place] #(LOINC) 0.20 - 1.00 x10EE3/U L [place] # 0.80 LAB EO #(LOINC) 0.00 - 0.50 x10EE3/U L EO # 0.30 LAB Baso #(LOINC) 0.00 - 0.10 x10EE3/U L Baso # 0.10 LAB MANUAL DIFF(LOINC) MANUAL DIFF N/A LAB MORPHOLOGY(LOINC ) MORPHOLOGY N/A Result Comment: {CD] Performed By: #### [id number] #### [facility],[address] [place] [address] HGB A1C Collected: 01/20/2018 Status: F Source: [facility] 2:47 PM [facility] REPOSITORY TYPE CODE TESTS RESULT OUT OF RANGE REFERENCE UNITS LAB HGB 4.4 - 6.4 % A1C(LOINC) HGB A1C 5.6 Result Comment: {HB] {A1] Performed By: #### [id number] #### [facility],[address] [place] [address] CV VENOUS LEG RT Observed: 11/19/2017 Status: F Source: [facility] 2:00 PM [place] [address] Patient: DONAVAN GALEANOGen Phone#: : 1970 Age: 47 Gender: M Pt. Type: Out Account: [id number] Location: 052 Ordering: SAGAR REYES Exam Date: 11/19/2017/13:14 Family Phys: ANTWON KIM Charge Code: 719233 Physician: [facility] Order #: [id number] DLP Dose#: PROCEDURE: VENOUS DOPPLER RT LEG COMPARISON: None. INDICATIONS: Groin pain TECHNIQUE: Color duplex Doppler ultrasound evaluation analysis was performed in the usual manner. FRUIT CANNER: ANA RISK FACTORS FOR VENOUS DISEASE: Other Groin pain EXAMINATION: RIGHT +Present -Reduced o Absent LEFT SPONT PHASIC AUG REFLUX COMP SPONT PHASIC AUG REFLUX COMP + + + o + CFV + + + o + + SFJ + + + o + FV (prox) + FV (mid) + FV (dist) + + + o + POP V + + + o + T/P TRUNK + + + o + PTV + + + o + PERONEAL V + GSV GASTROC SOLEAL V FRUIT CANNER'S NOTES: Continued Report - Page 2 of 2 Patient: CA GALEANOIRA Jacobson Phone#: : 1970 Age: 47 Gender: M Pt. Type: Out Account: [id number] Location: 052 Ordering: SAGAR REYES Exam Date: 11/19/2017/13:14 Family Phys: ANTWON KIM Charge Code: 624580 Physician: [facility] Order #: [id number] DLP Dose#: FINDINGS: THROMBI: None visible. COMPRESSIBILITY: Normal. OTHER: Negative. CONCLUSION: 1. No evidence of deep venous thrombosis in the right lower extremity. Dictated by: Anya Ny MD on 11/19/2017 at 14:16 Approved by: Anya Ny MD on 11/19/2017 at 14:16 12 LEAD ELECTROCARDIOGRAM Observed: 10/14/2017 Status: F Source: [place] 1:47 PM [facility] Cardiovascular Services [address] [place] [address] 12 Lead EKG 10/10/17 0943 MR#: [id number] Acct: [id number] Name: DONAVAN GALEANO Rep #: [id number] : 1970 47 From: eGrald Estrada MD Attending Dr: Status: DEP ER Ordering Dr: Sen Umana MD Date: 10/10/17 Location: ED Sex: M C Admitted: Test Reason : HYPERTENSON Blood Pressure : / mmHG Vent. Rate : 101 BPM Atrial Rate : 101 BPM P-R Int : 146 ms QRS Dur : 082 ms QT Int : 338 ms P-R-T Axes : 045 030 058 degrees QTc Int : 438 ms Sinus tachycardia Otherwise normal ECG Confirmed by RICHIE LARSON, GERALD ([id number]), primer expeditor and drier SELENE BUCKLEY ([id number]) on 10/14/2017 1:47:40 PM Referred By: LELIA Confirmed By:GERALD ESTRADA MD 10/14/17 1347 Date Gerald Estrada MD CC: Sen Umana MD; Antwon Kim Signed EMERGENCY DEPARTMENT Observed: 10/10/2017 Status: F Source: [facility] SUMMARY 5:39 PM [facility] Medical Records Department [address] [place] [address] Emergency Department Summary 10/10/17 0944 MR#: [id number] Acct: [id number] Name: DONAVAN GALEANO Rep #: [id number] : 1970 47 From: Sen Umana MD PCP: Antwon Kim Status: DEP ER - ER Visit Summary Date of Service: 10/10/17 Chief Complaint: High blood pressure and headache History of Present Illness: The patient is a [address] Antwon Kim. He reports that he has a headache that began this morning when he woke up. Came on abruptly. It is a sharp diffuse pain that is 8 out of 10 severity. He reports he has had similar headaches multiple times in the past. States that he gets headaches approximately twice per week. He is is associated with photophobia. He has had no nausea or vomiting. No recent injury to his head. States it is 10 out of 10 at worst and 8 out of 10 currently. Patient denies any fever or chills. No numbness or weakness. No change in his vision. Physical Examination: Vitals: Stable. Afebrile. General: Well-nourished and well-developed. Head: Normocephalic atraumatic. Neck: Supple, no lymphadenopathy. No JVD. Nontender. Cardiovascular: Regular rate and rhythm. No murmurs. Respiratory: No respiratory distress. Clear to auscultation bilaterally. Abdominal: Soft, nontender, nondistended, normal bowel sounds. No guarding, rebound, or peritoneal signs. Back: Nontender. Extremities: Nontender, no edema. Skin: Normal color, no rash. Neurologic: Alert and oriented 3. Cranial nerves II through XII are intact. Normal strength and sensation. Psych: Normal affect. Test Results: CBC is normal. Chem-7 is more for chloride [address] brain is normal. CTA head shows normal [place] with no aneurysm. EKG is sinus tach at [address] changes. Emergency Department Course and Treatment: Patient had an IV placed. He was given Dilaudid and Zofran for his headache. He is resting comfortably. His blood pressure has decreased from 179/97 to 150/103. Treatment Plan: Patient will be discharged instructions to follow-up with his primary care physician within a week for repeat check of his blood pressure. Return to the emergency department for any worsening symptoms. Disposition: To home in improved and stable condition. Impression: 1. Cephalgia. 2. Hypertension. This note was generated with sonarDesignation software. It may contain incorrect words, spelling, and punctuation that were not noted in review of the chart prior to signing ED Disposition - Plan for ED Patient: Chief Complaint: Hypertension Instructions: ED HTN Established Referrals: Antwon Kim [Primary Care Provider] - 1 Week What to do if you have Problems For any increased pain, shortness of breath, bleeding, nausea or vomiting, chest pain, or any unexpected problems, contact your Primary Care Provider. Call [facility] ([phone]) or report to the closest Emergency Room. Call 911 if necessary. 10/10/17 3158 <Electronically signed by Sen Umana MD> Date Sen Umana MD Cosigner Signature (If Indicated): Date CC: Antwon Kim CTA HEAD W/WO Observed: 10/10/2017 Status: F Source: [place] CONTRAST 11:11 AM [facility] REPOSITORY [facility] Imaging Services [address] [place] [address] CTA Head W/WO Contrast MR#: [id number] Acct: [id number] Name: DONAVAN GALEANO Rep #: [id number] : 1970 M 47 From: Hero Stanton MD PCP: Antwon Kim Status: REG ER Study: CTA Head W/WO Contrast Date of Exam: 10/10/17 Exam# [id number] Ordering Dr: Sen Umana MD STUDY: CTA OF THE BRAIN REASON FOR EXAM: Male, 47 years old. Headaches. Hypertension. RADIATION DOSAGE (If Supplied By Facility): CTDIvol = ( 17.48 ) mGy, DLP = ( 412.56 ) mGycm TECHNIQUE: CT angiography was performed with a multi-detector CT scanner. Data acquisition was obtained from the skull base through the vertex following intravenous administration of 100 ml of Isovue 370. MIP images were reconstructed from the axial data set. Post-processing of the angiographic images was performed, with multiplanar reformation and 3D reconstruction. Individualized dose optimization techniques were used for this CT. COMPARISON: None. FINDINGS: Normal bilateral petrous carotid arteries. Normal right cavernous carotid artery with a normal supraclinoid bifurcation. Normal left cavernous carotid artery with a normal supraclinoid bifurcation. Normal right A1 segments of the anterior cerebral artery. Normal left A1 segments of the anterior cerebral artery. Normal intact anterior communicating artery (ACOM). Normal bilateral A2 segments of the anterior cerebral arteries. Normal right M1 and M2 segments of the middle cerebral arteries, with a normal M1 bifurcation. Normal left M1 and M2 segments of the middle cerebral arteries, with a normal M1 bifurcation. Normal right posterior communicating artery (PCOM). Normal left posterior communicating artery (PCOM). Normal bilateral vertebral arteries. Normal basilar artery with a normal basilar bifurcation. The visualized bilateral superior cerebellar (SCA) arteries are normal. Normal bilateral P1, P2 and visualized P3 segments of the posterior cerebral arteries. There is no demonstrated aneurysm of the [place]. There is no demonstrated abnormality of the visualized brain. CT/CTA Head W/WO Contrast IMPRESSION: Normal [place] without a demonstrated aneurysm or hemodynamically significant stenosis. 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 CBC W/DIFF, AUTOMATED Collected: 10/10/2017 Status: F Source: [place] 9:41 AM [facility] REPOSITORY TYPE CODE TESTS RESULT OUT OF RANGE REFERENCE UNITS LAB L100.1000 4.4-11.0 K/mm3 Normal WBC 8.3 LAB L100.1200 4.6-6.2 M/mm3 Normal RBC 5.10 LAB L100.1300 13.0-16.5 g/dl Normal HGB 15.0 LAB L100.1400 40-54 % Normal HCT 45.8 LAB L100.1500 80-94 fL Normal MCV 89.8 LAB L100.1600 27.0-32.0 pg Normal MCH 29.4 LAB L100.1700 32-36 g/gl Normal MCHC 32.8 LAB L100.1810 11.6-14.6 % Normal RDW CV 13.9 LAB L100.1820 35.1-43.9 fl High RDW SD 45.7 LAB L100.1900 150-450 K/mm3 Normal PLT 157 LAB L100.2000 6.2-12.0 fl Normal MPV 11.1 LAB L100.2100 47-70 % Normal NEUT% 67.7 LAB L100.2200 19-41 % Normal LY% 22.1 LAB L100.2300 0-10 % Normal MONO% 8.4 LAB L100.2400 0-5 % Normal EO% 1.1 LAB L100.2500 0-1 % Normal BASO% 0.5 LAB L100.2550 0.0-0.9 % Normal IM GRAN % 0.200 Result Comment: IG% - Immature Granulocytes (promyelocytes, myelocytes and metamyelocytes) > 1% indicates that a LEFT SHIFT is Present. LAB L100.2620 2.0-7.7 X10 3/uL Normal Absolute Neut 5.7 LAB L100.2720 0.83-4.51 X10 3/ul Normal Absolute Lymph 1.84 Performed By: #### L100.0100 #### [facility] [address] [place], [place], [address] BASIC METABOLIC Collected: 10/10/2017 Status: F Source: [place] PROFILE (BMP) 9:41 AM [facility] REPOSITORY TYPE CODE TESTS RESULT OUT OF RANGE REFERENCE UNITS LAB L501.0100 74-106 mg/dL High GLU 112 Result Comment: Fasting Glucose result from 100 to 125 mg/dL suggests IMPAIRED HOMEOSTASIS per A.D.A. criteria. Please note revised GLUCOSE reference range effective 2017. LAB L501.1000 7-18 mg/dL Normal BUN 17 LAB L501.1100 0.70-1.30 mg/dL Normal CREAT,SERUM 1.24 Result Comment: The validity of the calculated GFR AND GFRAA in patients over 70 years has not been determined. Clinical correlation is essential. LAB L501.1110 >60 mL/min Normal EST GFR 66 Result Comment: Non- GFR Calc LAB L501.1115 >60 mL/min Normal EST GFR - AA 80 Result Comment: GFR Calc LAB L501.1255 ml/min Normal Estimated CRCL 68.11 LAB L501.1300 10-20 RATIO Normal BUN/CRE 13.7 LAB L501.2200 8.5-10 mg/dL Normal .1 CA 9.0 LAB L501.5300 136-14 mmol/L Normal 5 NA 143 LAB L501.5600 3.5-5. mmol/L Normal 1 K 3.7 LAB L501.5900 98-107 mmol/L High CL 108 LAB L501.6100 21.0-3 mmol/L Normal 2.0 CO2 28.0 LAB L501.6200 5-15 Normal GAP 7 Performed By: #### L500.2500 #### [facility] [address] [facility] [place], [address] BRAIN/HEAD WITHOUT Observed: 10/10/2017 Status: F Source: [place] CONTRAST 9:37 AM [facility] REPOSITORY [facility] Imaging Services [address] [place] [address] Brain/Head without Contrast MR#: [id number] Acct: [id number] Name: DONAVAN GALEANO Rep #: [id number] : 1970 M 47 From: Hero Stanton MD PCP: Antwon Kim Status: REG ER Study: Brain/Head without Contrast Date of Exam: 10/10/17 Exam# [id number] Ordering Dr: Sen Umana MD STUDY: CT BRAIN WITHOUT CONTRAST REASON FOR EXAM: Male, 47 years old. Headaches. Hypertension. RADIATION DOSAGE (If Supplied By Facility): CTDIvol = ( 44.99 ) mGy, DLP = ( 796.11 ) mGycm TECHNIQUE: Transaxial CT imaging of the brain was performed without administration of intravenous contrast material. Individualized dose optimization techniques were used for this CT. COMPARISON: None. FINDINGS: Normal soft tissue structures. Normal calvarium. Normal size ventricles and extra-axial spaces for the patient's age. Normal white matter tracts of the cerebral hemispheres. Normal basal ganglia and thalami. Normal brainstem. Normal cerebellum. There is no intracranial hemorrhage. There are no findings of an acute ischemic infarction. Normal visualized paranasal sinuses. CT/Brain/Head without Contrast IMPRESSION: Normal unenhanced CT scan of the brain. 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 ALLERGIES ALLERGIES DATE TYPE / CODE NAME / CODE REACTION SEVERITY SOURCE 07/01/2018 Drug No Known Unknown [place] Allergy/[id number](S Allergies/F0019 [facility] NOMED CT) 71658(RXNORM) Hospital Repository Miscellaneous No Known Drug Moderate [place] Allergy/[id number](S Allergies ([facility] NOMED [facility]) Modifier) Hospital (Qualifier Repository Value) ENCOUNTERS ENCOUNTERS ADMIT/DISCHARGE ACCOUNT ADMITTING ENCOUNTER LOCATION SOURCE NUMBER CLASS 2018 [id number] Ambulatory Gadiel [place] 7 [facility] ing:CT Repository 07/17/2018 [id number] Amb[place] 6 [facility] ing:PSN Repository 07/17/2018 [id number] Ambulatory BMSBuilding:W [place] 0 [facility] Repository 07/01/2018/ [id number] Ambulatory BMSBuilding:B [place] 9 9 [place].PMW [facility] [place] [place] Repository 06/10/2018/ [id number] Patrica GONZALEZ Ambulatory [place] 8 [facility] Repository 03/24/2018 [id number] KIMMY, Ambulatory Ir[facility]o [place] Repository 03/24/2018/ [id number] KIMMY, Ambulatory [place] 8 [facility] Repository 03/03/2018/ [id number] KIMMY, Ambulatory [place] 8 [facility] Repository 01/20/2018/ [id number] KIMMY, Ambulatory [place] 8 [facility] Repository 11/20/2017/ [id number] [facility] Rep[facility] 11/19/2017/ [id number] KIMMY, Ambulatory [facility] 8 [facility] Repository 10/10/2017/ [id number] Emergency Gadiel [place] 8 4 [facility] ing:ED Repository PAYERS PAYERS ENCOUNTER GUARANTOR PAYER SUBSCRIBER SOURCE 2018 DONAVAN D Primary DONAVAN D [place] [id number] [place] Insurance:MEDICARE REEDDOB: Community WHITE PART A BPolicy Number: [id number] [id number] Repository [place] [address]Csi: Date:2018-07-01 () 2018 Secondary NOT GIVENUNK [place] Insurance:SELF PAY [facility] Number: Effective Repository Date:2018-07-01 07/17/2018 DONAVAN D Primary DONAVAN D [place] [id number] [place] Insurance:MEDICARE REEDDOB: Community WHITE PART A BPolicy Number: [id number], [id number] Repository [place] [address]Xkt: Date:2018-07-01 () 07/17/2018 Secondary NOT GIVENUNK [place] Insurance:SELF PAY [facility] Number: Effective Repository Date:2018-07-01 07/17/2018 DONAVAN D Primary DONAVAN D [place] [id number] [place] Insurance:MEDICARE REEDDOB: Community WHITE PART A BPolicy Number: [id number], [id number] Repository [place] [address]Uns: Date:2018-07-01 () 07/17/2018 Secondary NOT GIVENUNK [place] Insurance:SELF PAY [facility] Number: Effective Repository Date:2018-07-17 07/01/2018 DONAVAN D Primary DONAVAN D [place] [id number] [place] Insurance:MEDICARE REEDDOB: Community WHITE PART A BPolicy Number: [id number] Specialty [facility], [id number] Repository [place] [address]Gsu: Date:2018-04-29 (HP) 07/01/2018 Secondary NOT GIVENUNK [place] Insurance:SELF PAY [facility] Number: Effective Repository Date:2018-06-26 06/10/2018 DONAVAN D Primary DONAVAN Orozco REEDDOB: Insurance:MEDICAREPoli REEDDOB: [facility] cy Number: [id number] [facility] [place] WHITE [id number] [place] WHITE Repository [facility] Date:Plan Name:[facility], , [place] [address]Kfn: [place] [id number] () 03/24/2018 DONAVAN D Primary CHELSEA Orozco REEDDOB: Insurance:MEDICAREPoli REEDDOB: [facility] cy Number: [id number] [facility] [place] WHITE [id number] [place] WHITE Repository [facility] Date:Plan Name:[facility] [place] [address]Djg: [place] [phone] () 03/24/2018 DONAVAN D Primary Insurance:500 DONAVAN Orozco REEDDOB: MEDICARE REEDDOB: [facility] [id number] Hospital [place] WHITE Number: [place] WHITE Repository [facility] [id number] [facility], [place] [address]Mux: Date:Plan Name:[facility] [id number] () 03/03/2018 DONAVAN D Primary Insurance:500 DONAVAN Orozco REEDDOB: MEDICARE REEDDOB: [facility] [id number] Hospital [place] WHITE Number: [id number] [place] WHITE Repository [facility] [id number] [facility], [place] [address]Pji: Date:Plan Name:[facility] [id number] () 01/20/2018 DONAVAN D Primary DONAVAN Orozco REEDDOB: Insurance:MEDICAREPoli REEDDOB: [facility] cy Number: [id number] Hospital [place] WHITE [id number] [place] WHITE Repository [facility] Date:Plan Name:[facility], , [place] [address]Fsz: [place] [id number] () 11/20/2017 CHELSEA D Primary Insurance:500 DONAVAN D Irineo [facility] [employer] REEDDOB: MEDICARE REEDDOB: [facility] [id number] Hospital [place] WHITE Number: [id number] [place] WHITE Repository [facility] [id number] [facility], , [place] [address]Zot: Date:Plan Name:[facility] [id number] () 11/19/2017 CHELSEA D Primary Insurance:500 DONAVAN D Irineo [place]omerene REEDDOB: MEDICARE REEDDOB: [facility] [id number] Hospital [place] WHITE Number: [id number] [place] WHITE Repository [facility] [id number] [facility], , [place] [address]Tve: Date:Plan Name:[facility] [id number] () 10/10/2017 Donavan D Primary Donavan D [place] [id number] [place] Insurance:MEDICARE ReedDOB: Community White PART A BPolicy Number: [id number] Health Partners, [id number] Repository [place] [address]Rdl: Date:2017-10-10 () 10/10/2017 Secondary NOT GIVENUNK [place] Insurance:SELF PAY [facility] Number: Effective Repository Date:2017-10-10
== END ==
LOC: PSN 07:53
PROVIDERS: Family Provider Student in an Organized Health Care Education/Training Program; PCP Student in an Organized Health Care Education/Training Program; Referring Provider Internal Medicine Critical Care Medicine; Visit Provider Internal Medicine Critical Care Medicine
DX: R06.02 Shortness of breath (principal); R04.2 Hemoptysis
CPT/HCPCS: 94060; 94726; 94729

== ENCOUNTER → 2018-07-24 07:53 | Outpatient (CLI) | payer MEDICARE, SELFPAY ==
[2018-07-01 07:58] VITALS: BMI 39.9
--- NOTE | 2018-07-24 07:54 | CT_ITS ---
STUDY: CT CHEST WITHOUT CONTRAST REASON FOR EXAM: Male, 48 years old. Hemoptysis with wheezing and shortness of breath RADIATION DOSAGE (If Supplied By Facility): CTDIvol = ( 19.21 ) mGy, DLP = ( 686.28 ) mGycm TECHNIQUE: Transaxial imaging was performed without the administration of intravenous contrast material. Multiplanar coronal and sagittal images were reformatted. Individualized dose optimization techniques were used for this CT. COMPARISON: 10/12/2017 FINDINGS: Normal expansion of the lungs. No airspace consolidation or pleural effusion. Mild subpleural scarring with subpleural calcification along the right minor fissure is noted. Minimal subpleural scarring in the right lateral costophrenic angle with linear calcification also demonstrated. No localized groundglass opacity. No endobronchial lesions detected. There is no demonstrated pleural abnormality. Normal heart and pericardium. Minor coronary artery atherosclerosis. Normal mediastinum. Normal hilar regions. Normal unenhanced pulmonary arteries. Normal aorta arch and descending thoracic aorta. There are multi-level degenerative changes of the thoracic spine. There is no demonstrated abnormality of the visualized upper abdomen. CT/Chest without Contrast IMPRESSION: 1. No airspace consolidation or pleural effusion. No pulmonary nodule detected. 2. Mild partially calcified fibrotic bands of the lateral right lung. 3. Mild coronary artery atherosclerosis. Electronically Signed: Noman Tavera MD at 9:43 EST , Service support ,
[2018-07-24 09:41] VITALS: PULSE 104; PULSE 106; PULSE 118; PULSE 121; PULSE 122; PULSE 123; O2SAT 92; O2SAT 93; O2SAT 94; O2SAT 95; O2SAT 96
--- NOTE | 2018-07-24 16:28 | PCM.PSN.6M ---
PSN 6 Minute Walk Test - 6 Minute Walk Test 6 Minute Walk Test: 6 Minute Walk Test PSN:6-Minute Walk Test Start: 07/24/18 09:41 Freq: Status: Active Protocol: [id number].6MINW Document 07/24/18 09:41 CESAR (Rec: 07/24/18 09:43 CESAR [id number]) 6 Minute Walk Test Date Performed 07/24/18 Time Performed 09:00 Height 5 ft 4 in Weight: 107.501 kg Weight in Pounds 237.[address]: Adeel Whitley Assistive device used: None Pre-test Oxygen Delivery Method Room Air Pulse Ox (%) 95 Pulse Rate (60-100 beats/min) 104 H Dyspnea Maryjo Scale (0-10) 1 Exertion Maryjo Scale (6-20) 6 1st minute Oxygen Delivery Method Room Air Pulse Ox (%) 96 Pulse Rate (60-100 beats/min) 104 H 2nd minute Oxygen Delivery Method Room Air Pulse Ox (%) 94 Pulse Rate (60-100 beats/min) 104 H 3rd minute Oxygen Delivery Method Room Air Pulse Ox (%) 96 Pulse Rate (60-100 beats/min) 118 H 4th minute Oxygen Delivery Method Room Air Pulse Ox (%) 92 Pulse Rate (60-100 beats/min) 121 H 5th minute Oxygen Delivery Method Room Air Pulse Ox (%) 93 Pulse Rate (60-100 beats/min) 122 H 6th minute Oxygen Delivery Method Room Air Pulse Ox (%) 92 Pulse Rate (60-100 beats/min) 123 H Dyspnea Maryjo Scale (0-10) 4 Exertion Maryjo Scale (6-20) 14 Post-test Oxygen Delivery Method Room Air Pulse Ox (%) 96 Pulse Rate (60-100 beats/min) 106 H Full Laps Walked 11 Partial Lap, Number of Tiles Walked 15 Total Distance Walked (ft) 664 - Interpretation Interpretation: The patient was able to ambulate only 664 feet over the course of 6 minutes on room air with no assistive devices or breaks. The patient experienced a desaturation as low as 92%, but was tachycardic throughout testing with a peak heart rate of 123 bpm. These findings are consistent with a cardiovascular limitation exercise tolerance. - Recommendations Recommendations: No supplemental oxygen is indicated at this time.
== END ==
LOC: CT 07:53
PROVIDERS: Family Provider Student in an Organized Health Care Education/Training Program; PCP Student in an Organized Health Care Education/Training Program; Referring Provider Internal Medicine Critical Care Medicine; Visit Provider Internal Medicine Critical Care Medicine
DX: R04.2 Hemoptysis (principal); R06.02 Shortness of breath; R07.9 Chest pain, unspecified
CPT/HCPCS: 71250; 94618

== ENCOUNTER 2025-01-22 19:05 | Emergency (ER) | payer MEDICARE, SELFPAY ==
[2025-01-22 19:07] VITALS: BP 148/116; PULSE 82; RESP 16; TEMP 36.9; O2SAT 99
--- NOTE | 2025-01-22 19:21 | EDS_ITS ---
HPI History of Present Illness Chief Complaint: Back Narrative Narrative: Patient is a 54-year-old male with past medical history IHSAN, hypertension, chronic kidney disease, pulmonary hemosiderosis who presented to the emergency department the chief complaint of back pain. Patient states that on Friday he was get out of tub slipped and he states that he caught himself and ever since then he has had right lower back pain. Patient states that he has been eating and drinking normally soft no vomiting. Patient denies any blood thinner medications. He states that he has been trying IcyHot which is not working prompting him to come here for further evaluation management. Patient states that he has had normal bowel movements and been urinating normally for himself. [facility] Medical History (Updated 01/22/25 @ 20:[address] Jamie Can DO) Obesity IHSAN (obstructive sleep apnea) Essential (primary) hypertension CKD (chronic kidney disease) stage 3, GFR 30-59 ml/min Pulmonary hemosiderosis Home Medications ?Medication ?Instructions ?Recorded ?Last Taken ?Type amitriptyline 100 mg tablet 100 mg PO QHS 10/10/17 Unk nown History fentanyl 37.5 mcg/hour transdermal 1 ea TD X1 10/10/17 Unknown History patch folic acid 1 mg tablet 1 mg PO DAILY@0800 10/10/17 Unknown History lisinopril 20 1 ea PO DAILY 10/10/17 Unkno wn History mg-hydrochlorothiazide 12.5 mg tablet metoprolol tartrate 50 mg tablet 50 mg PO BID 07/01/18 Unknown History cyclobenzaprine 10 mg tablet 10 mg PO TID PRN muscle s pasm #14 01/22/25 Unknown Rx tabs lidocaine 5 % topical patch 1 patch topical DAILY #15 ea 01/22/25 Unknown Rx ondansetron 4 mg disintegrating 4 mg PO Q6H PRN nausea and 01/22/25 Unknown Rx tablet vomiting #20 tabs oxycodone-acetaminophen 5 mg-325 1 tab PO Q6H PRN pain 3 days #12 01/22/25 Unknown Rx mg tablet (Endocet) tabs Allergy/AdvReac Type Severity Reaction Status Date / Time No Known Allergies Allergy Verified 01/22/25 19:06 Family History Father COPD (chronic obstructive pulmonary disease) Mother Multiple sclerosis Sister Melanoma Surgical History History of appendectomy History of lung biopsy Social History household members: children Smoking Status: Never smoker alcohol intake: never substance use type: does not use ROS ROS ED ROS Narrative Constitutional: Denies any fevers or chills, headaches Eyes: Denies change in vision double vision blurry vision Cardiovascular: Denies chest pain Respiratory: Denies shortness of breath Abdomen: Denies abdominal pain nausea vomit diarrhea : Denies any urinary symptoms Neurological: Denies numbness, weakness, tingling Musculoskeletal: Complains of a right lower back pain as noted above Skin: Denies any rashes or lesions EXAM Physical Exam Narrative Exam Narrative: General: Patient lying in bed did appear to be uncomfortable secondary to his low back pain Head: Atraumatic, normocephalic Eyes: PERRL bilaterally, EOMI blood, no conjunctival injection noted Neck: Soft, supple, trachea midline Cardiovascular: Regular rate and rhythm no murmurs gallops rubs noted Respiratory: Clear to auscultation bilaterally no rales rhonchi or wheeze noted Abdomen: Soft, nondistended, nontender to palpation Musculoskeletal: No tenderness palpation midline of the thoracolumbar spine no step-offs or deformities noted, patient is tenderness to palpation of the right quadratus lumborum region Extremities: +5/5 strength noted in the bilateral upper and lower extremities, radial pulses +2/4 in the bladder extremities, Neurological: Patient following commands knew that he was at [facility] the year is 2024 sensation grossly intact no saddle anesthesia noted Skin: Warm, dry, tact no rashes lesions noted Const Vital Signs: 01/22/25 19:07 Temperature 98.4 F Temperature Source Oral Pulse Rate 82 Respiratory Rate 16 Blood Pressure 148/116 H Blood Pressure Mean 126 Pulse Ox 99 Oxygen Delivery Method Room Air MDM MDM MDM Narrative Medical decision making narrative: Patient is a 54-year-old male who presented to the emergency department chief complaint of low back pain. On the differential diagnosis includes but not limited to musculoskeletal strain, compression fracture of his lumbar spine. Once workup is obtained reviewed he will be reevaluated. Patient given IM morphine and Norflex. Patient's lumbar x-ray reviewed by myself and by radiology showed no acute fracture listhesis degenerative disc disease without acute deformity. Reevaluated patient he is feeling better he would like to go home at this point in time. Patient was advised to rotate Tylenol and ibuprofen [id number] for mild to moderate pain. He will be given prescriptions for Lidoderm patch, Endocet and Zofran for severe pain, muscle relaxers. He was advised to not operate anything under the influence of the muscle relaxer or the narcotic. He is encouraged to return with worsening symptoms or any concerns. He is agreeable this plan all question concerns answered he is discharged home in stable condition. Radiography Diagnostic Testing: Clinical Impression(s) from Imaging Studies Lumbar Spine X-Ray 01/22/25 19:50 IMPRESSION: Degenerative disc disease without acute deformity Reading Location: [facility] Discharge Plan Triage Chief Complaint: Back ED Provider: Jamie Can Dx/Rx/DC Orders Clinical Impression: Musculoskeletal strain, Hypertension, Hx of chronic kidney disease Prescriptions: New lidocaine 5 % adhesive patch,medicated 1 patch topical DAILY Qty: 15 0RF Rx Instructions: leave on most painful area for up to 12 hrs cyclobenzaprine 10 mg tablet 10 mg PO TID PRN (Reason: muscle spasm) Qty: 14 0RF ondansetron 4 mg tablet,disintegrating 4 mg PO Q6H PRN (Reason: nausea and vomiting) Qty: 20 0RF oxycodone-acetaminophen [Endocet] 5-325 mg tablet 1 tab PO Q6H PRN (Reason: pain) 3 Days Qty: 12 0RF No Action metoprolol tartrate 50 mg tablet 50 mg PO BID amitriptyline 100 MG tablet 100 mg PO QHS lisinopril-hydrochlorothiazide 1 EACH tablet 1 ea PO DAILY folic acid 1 MG tablet 1 mg PO DAILY@0800 fentanyl 1 EACH patch 72 hour 1 ea TD X1 Patient Comments: 12.5 AND 25 Q 3 DAYS Primary Care Provider: Kanika Reyes Referrals: Kanika Reyes MD [Primary Care Provider] - Activity Restrictions/Additional Instructions: Rotate Tylenol and ibuprofen [id number] when you do this you can take something every 3 hours for pain max dose Tylenol in 24 hours 4000 mg max dose of ibuprofen in 24 hours 3200 mg. Use muscle relaxers as prescribed do not operate anything in the influence of this medication. Use the Endocet and Zofran and do not operate anything up in the influence of this either. Use the Lidoderm patch as prescribed as well. Follow-up your doctor. Your x-ray did not show any acute findings. Any other concerns return to the emergency department. Print Language: Irish Disposition Disposition: Home, Self Care
--- OUTSIDE RECORDS SUMMARY | 2025-01-22 19:28 | XMS RPT_ITS | CCD ---
Author Organization [facility] Care Team Providers Care [employer] Taxonomist Name Role Phone JUAN ANTONIO ALLEN Unavailable Unavailable JUAN ANTONIO ALLEN Unavailable Unavailable Adeel Whitley Attending Unavailable Antwon Kim Referring Unavailable Adeel Whitley Attending Unavailable Adeel Whitley Referring Unavailable Sagar Reyes Primary Care Unavailable Sen Umana Attending Unavailable Antwon Kim Primary Care Unavailable Adeel Whitley Attending Unavailable Adeel Whitley Referring Unavailable Sagar Reyes Primary Care Unavailable Sandeep Kim D.O. Attending Unavailable ITALO CARLOS Primary Care Unavailable ITALO CARLOS Attending Unavailable SAGAR REYES MD Consulting Unavailable IVETH, ITALO T Admitting Unavailable PROVIDER, UNKNOWN Consulting Unavailable PROVIDER, UNKNOWN Consulting Unavailable IVETH, ITALO T Primary Care Unavailable IVETHITALO BARRERA Attending Unavailable IVETH, ITALO T Admitting Unavailable SAGAR REYES MD Consulting Unavailable PROVIDER, UNKNOWN Consulting Unavailable PROVIDER, UNKNOWN Consulting Unavailable SAGAR REYES MD Referring Unavailable MARIAM, CACHORRO E Primary Care Unavailable CACHORRO BECERRA Attending Unavailable MARIAM, CACHORRO E Admitting Unavailable SAGAR REYES MD Consulting Unavailable PROVIDER, UNKNOWN Consulting Unavailable PROVIDER, UNKNOWN Consulting Unavailable SAGAR REYES MD Referring Unavailable MARIAM, CACHORRO E Primary Care Unavailable MARIAM CACHORRO E Attending Unavailable MARIAM, CACHORRO E Admitting Unavailable SAGAR REYES MD Consulting Unavailable PROVIDER, UNKNOWN Consulting Unavailable PROVIDER, UNKNOWN Consulting Unavailable SGAAR REYES MD Attending Unavailable SAGAR REYES MD Admitting Unavailable SAGAR REYES MD Primary Care Unavailable SAGAR REYES MD Consulting Unavailable PROVIDER, UNKNOWN Consulting Unavailable PROVIDER, UNKNOWN Consulting Unavailable CHRISTINE, LOUISA PAC Primary Care Unavailable CHRISTINE, LOUISA PAC Attending Unavailable CHRISTINE, LOUISA PAC Admitting Unavailable SAGAR REYES MD Consulting Unavailable PROVIDER, UNKNOWN Consulting Unavailable PROVIDER, UNKNOWN Consulting Unavailable SAGAR REYES MD Attending Unavailable SAGAR REYES MD Admitting Unavailable SAGAR REYES MD Primary Care Unavailable SAGAR REYES MD Consulting Unavailable PROVIDER, UNKNOWN Consulting Unavailable PROVIDER, UNKNOWN Consulting Unavailable SAGAR REYES MD Attending Unavailable SAGAR REYES MD Admitting Unavailable SAGAR REYES MD Primary Care Unavailable SAGAR REYES MD Consulting Unavailable PROVIDER, UNKNOWN Consulting Unavailable PROVIDER, UNKNOWN Consulting Unavailable Problems Active Problems Problem Classification Problem Date Documented Da te Episodic/Chronic Nonspecific chest pain (1 source) Chest pain, unspecified; Translations: [R07.9 - Chest pain, unspecified] Onset: 2018 Episodic Other liver diseases (1 source) Abnormal levels of other serum enzymes; Translations: [Abnormal levels of other serum enzymes] Onset: 09-17-2024 Episodic Other lower respiratory disease (1 source) Hemoptysis; Translations: [R04.2 - Hemoptysis] Onset: 2018 Episodic Other lower respiratory disease (1 source) Shortness of breath; Translations: [R06.02 - Shortness of breath] Onset: 07-31-2018 Episodic Other nutritional; endocrine; and metabolic disorders (1 source) Hereditary hemochromatosis; Translations: [Hereditary hemochromatosis] Onset: 01-01-2017 Chronic Unclassified (1 source) Unknown / UNK(Unknown) Onset: 01-01-2017 Past or Other Problems Problem Classification Problem Date Documented Da te Episodic/Chronic Abdominal pain (3 sources) Right upper quadrant pain; Translations: [Right upper quadrant pain] Onset: 10-03-2023 Episodic Biliary tract disease (3 sources) Calculus of gallbladder with chronic cholecystitis without obstruction; Translations: [Calculus of gallbladder with chronic cholecystitis without obstruction] Onset: 10-13-2023 Episodic Other gastrointestinal disorders (3 sources) Heartburn; Translations: [Heartburn] Onset: 09-26-2023 Episodic Other screening for suspected conditions (not mental disorders or infectious disease) (1 source) Other specified abnormal findings of blood chemistry; Translations: [Other specified abnormal findings of blood chemistry] Onset: 03-20-2024 Episodic Results Test Name Value Interpretation Reference Range Facility ED MED ADMINISTRATION DETAIL on 07-30-2024 ED MED ADMINISTRATION DETAIL Pourer Off Medication Administration Record [facility] [id number] [place] [address] [phone] 07/28/2024 Patient: DONAVAN GALEANO Sex: Male : 1970 Age: 54y MEASUREMENTS: Wt: 93.0 kg, Ht/Didier: 67.0 in, BMI: 32.11 ALLERGIES: No known drug allergies Medication Ordered Medication Administration Date/Time HYDROmorphone 08:07/28 HYDROmorphone (Dilaudid) IM 1 mg given. Given in Given (Dilaudid) IM 1 mg the left deltoid. Allergies verified and confirmed 5 rights. Information 08:07/28/2024 (NOW x1, HIGH reviewed with patient and family including reason for taking this Pablo Eastep, R.N. ALERT medication, signs of allergic reaction, precautions and sedative Scanned MEDICATION) warning. Verbalizes understanding. - 08:11 Pablo Eastep, R.N. KetorOLAC 08:07/28 KetorOLAC (Toradol) IM 30 mg given. Given in the Given (Toradol) IM 30 mg right deltoid. Allergies verified and confirmed 5 rights. Information 08:11 07/28/2024 (NOW x1) reviewed with patient and family including reason for taking this Pablo Eastep, R.N. medication, signs of allergic reaction and precautions. Verbalizes Scanned understanding. - 08:12 Pablo Eastep, R.N. Ondansetron ODT 08:07/28 Ondansetron ODT PO 4 mg given. Allergies verified Given PO 4 mg (NOW x1) and confirmed 5 rights. Information reviewed with patient and family 08:07/28/2024 including reason for taking this medication, signs of allergic reaction Pablo Eastep, R.N. and precautions. Verbalizes understanding. - 08:09 Pablo Eastep, Scanned R.N. HYDROmorphone 09:07/28 HYDROmorphone (Dilaudid) IM 0.5 mg given. Given Given (Dilaudid) IM 0.5 mg in the left deltoid. Allergies verified and confirmed 5 rights. 09:07/28/2024 (NOW x1, HIGH Information reviewed with patient and family including reason for Pablo Eastep, R.N. ALERT taking this medication, signs of allergic reaction, precautions and Scanned MEDICATION) sedative warning. Verbalizes understanding. Medication Wastage: 0.5 mg wasted. - 09: Pablo Oneill R.N. 1 of 2 Pourer Off Medication Ordered Medication Administration Date/Time PredniSONE PO 40 09:07/28 PredniSONE PO 40 mg given. Allergies verified and Given mg confirmed 5 rights. Information reviewed with patient and family 09:07/28/2024 including reason for taking this medication, signs of allergic reaction Pablo Oneill R.N. and precautions. Verbalizes understanding. - 09: Pablo Oneill, Scanned R.N. 2 of 2 [facility] ED NURSES CLINICAL NOTEon ED NURSES CLINICAL NOTE Nurse Narrative Nurse Clinical Narrative [address] [place] [address] [id number] 07/28/2024 Patient: DONAVAN GALEANO Sex: Male : 1970 Age: 54y Disposition: Discharge to Home Disposition Decision Time: 10:07/28/2024 Departure Time: 10:35 07/28/2024 TRIAGE Arrived by private vehicle. Historian: patient. Accompanied by family. Triage time: 07:06 07/28/2024. Acuity: LEVEL 4. Chief Complaint: BACK PAIN. This started yesterday. ( PT reports slipped on ice but never fell). SEPSIS SCREEN: NEGATIVE. SIRS criteria negative: heart rate greater than 90. No possible sources of infection. -- 07:52 07/28/24 LYNN Ma R.N. 07:51 07/28/24. BP: 152/114 MAP: 127. HR: 125. RR: 18. O2 saturation: 96% Temperature: 98.6 F. Pain level now 04/08. -- 07:51 07/28/24 LYNN Ma R.N. Measurements: 07:52 07/28/24 Wt: 93.0 kg, Ht/Didier: 67.0 in, BMI: 32.11 -- 07:52 07/28/24 LYNN Ma R.N. Medications: lisinopril 20 mg-hydrochlorothiazide 25 mg tablet: 1 tablet once a day. -- 07:54 07/28/24 LYNN Ma R.N. 1 of 4 Nurse Narrative Allergies: no known drug allergies -- 07:47 07/28/24 LYNN Ma R.N. Home Medications/Allergy Information Source: patient -- 07:47 07/28/24 LYNN Ma R.N. Problems: Hypertension -- 07:48 07/28/24 LYNN Ma R.N. 07:53 07/28/24. Preferred pharmacy ([facility]). -- 07:53 07/28/24 LYNN Ma R.N. ADDITIONAL SURGERIES: Biopsy. lung -- 07:48 07/28/24 LYNN Ma R.N. Shoulder Surgery. right -- 07:48 07/28/24 LYNN Ma R.N. Appendectomy -- 07:49 07/28/24 LYNN Ma R.N. Hernia Repair -- 07:49 07/28/24 LYNN Ma R.N. History 07:06 07/28/24. SOCIAL HX: Never smoker. No alcohol use or drug use. The patient has not traveled outside the [place] Infectious disease exposure: No infectious disease exposure. ABUSE ASSESSMENT: The patient answered yes to the question(s) Do you feel safe in your home? and no to the question(s) Are you afraid to go home?. Abuse denied. No suspicion of abuse. SELF HARM ASSESSMENT: Self harm assessment was performed. The patient answered no to the question(s) Have you recently felt down, depressed, or hopeless? and Do you have thoughts of harming or killing yourself?. 2 of 4 Nurse Narrative FALL RISK ASSESSMENT: Fall risk assessment completed. No risk factors identified. -- 07:52 07/28/24 LYNN Ma R.N. Interventions 07:06 07/28/24. Advanced care plan discussed with patient (Full Code). -- 07:52 07/28/24 LYNN Ma R.N. PHYSICAL ASSESSMENT 07:45 07/28/24. Ambulatory to room. (Pt c/o lower back pain since yesterday morning, states he slipped on ice and caught himself, states lower back was sore after event and has been worsening since.). GENERAL / NEURO / PSYCH: Alert. Oriented X 4. Appears in pain. The patient has pain-related numbness of the right leg and left leg. CVS: Pulses within normal limits. Capillary refill less than 2 seconds. EXTREMITIES: ROM of extremities within normal limits. BACK: Normal inspection of the neck and back. Limited ROM in the lumbar spine (decreased flexion) and (decreased extension). No neck or back tenderness. -- 07:55 07/28/24 LYNN Oneill R.N. NURSING PROGRESS NOTES 07:45 07/28/24. Patient identifiers checked. Call light placed in reach. Side rails up x 1. Bed placed in lowest position. Brakes of bed on. -- 07:55 07/28/24 LYNN Oneill R.N. 08:09 07/28/24. Ondansetron ODT PO 4 mg given. Allergies verified and confirmed 5 rights. Information reviewed with patient and family including reason for taking this medication, signs of allergic reaction and precautions. Verbalizes understanding. -- 08:09 07/28/24 LYNN Oneill R.N. 08:10 07/28/24. HYDROmorphone (Dilaudid) IM 1 mg given. Given in the left deltoid. Allergies verified and confirmed 5 rights. Information reviewed with patient and family including reason for taking this medication, signs of allergic reaction, precautions and sedative warning. Verbalizes understanding. -- 08:11 07/28/24 LYNN Oneill R.N. 08:11 07/28/24. KetorOLAC (Toradol) IM 30 mg given. Given in the right deltoid. Allergies verified and confirmed 5 rights. Information reviewed with patient and family including reason for taking this medication, signs of allergic reaction and precautions. Verbalizes understanding. -- 08:12 07/28/24 LYNN Oneill R.N. 08:45 07/28/24. Rounding: Pain: assessed pain level (8/10). Proximity of possessions / care items: call light within easy reach. Plug ins: checked status of equipment in use; located all cords, tubes, and lines to prevent fall hazard. Set expectations: advised patient of rounding protocol timing and asked if they ne (more content not included)... [facility] ED ORDER SHEET (CPOE ONLY)on 07-30-2024 ED ORDER SHEET (CPOE ONLY) Order Sheet Order Sheet [address] [place] [address] [id number] 07/28/2024 [id number] Sex: Male : 1970 Age: 54y MEASUREMENTS: Wt: 93.0 kg, Ht/Didier: 67.0 in, BMI: 32.11 ALLERGIES: No known drug allergies MEDICATION/IV/DRIP/FLUID ORDERS Order Description Priority Entered Acknowledged Completed HYDROmorphone (Dilaudid) 08:02 07/28/2024 08:02 08:11 IM1 mg (NOW x1, HIGH ALERT Storm Delvalle D.O. 07/28/2024 07/28/2024 MEDICATION) Pablo Saez R.N. R.N. KetorOLAC (Toradol) IM30 mg 08:02 07/28/2024 08:02 08:12 (NOW x1) Storm Delvalle D.O. 07/28/2024 07/28/2024 Pablo Saez R.N. R.N. Reason for ordering with alerts: Benefits outweigh risks --08:02 07/28/2024 Storm Delvalle D.O. Ondansetron ODT PO4 mg 08:02 07/28/2024 08:02 08:09 (NOW x1) Storm Delvalle D.O. 07/28/2024 07/28/2024 Pablo Saez R.N. R.N. HYDROmorphone (Dilaudid) 09:22 07/28/2024 09:24 09:30 IM0.5 mg (NOW x1, HIGH Kavon CorreaO. 07/28/2024 07/28/2024 ALERT MEDICATION) Pablo Saez R.N. R.NGen 1 of 2 Order Sheet Reason for ordering with alerts: Benefits outweigh risks --09:22 07/28/2024 Storm Delvalle D.O. PredniSONE PO40 mg 09:22 07/28/2024 09:24 09:28 Storm Delvalle D.O. 07/28/2024 07/28/2024 Pablo Saez R.NGen RGenNGen Reason for ordering with alerts: Benefits outweigh risks --09:22 07/28/2024 Storm Delvalle D.O. LAB ORDERS Order Description Priority Entered Acknowledged Collected Completed Urinalysis Stat Stat 08:03 07/28/2024 08:08 07/28/2024 Pablo Correa D.O. RSaad DIAGNOSTIC STUDY ORDERS Order Description Priority Entered Acknowledged Completed CT ABD/PEL wo Cont Stat Stat 08:06 07/28/2024 08:08 09:11 Storm Delvalle D.O. 07/28/2024 07/28/2024 Pablo Saez R.NGen R.NGen Reason for Study: Vomiting CT L-Spine wo Cont Stat Stat 08:06 07/28/2024 08:08 09:11 Storm Delvalle D.O. 07/28/2024 07/28/2024 Pablo Saez R.N. R.NGen Reason for Study: Lower Back Pain STAFF ORDERS Order Description Priority Entered Acknowledged Collected Completed [Electronically signed by Storm Delvalle D.O. (07/30/2024 01:24 EST)] 2 of 2 [facility] ED PHYSICIAN CLINICAL REPORT on 07-30-2024 ED PHYSICIAN CLINICAL REPORT Narrative Physician Clinical Narrative [address] [address] [id number] 07/28/2024 Patient: DONAVAN GALEANO Sex: Male : 1970 Age: 54y Disposition: Discharge to Home Disposition Decision Time: 10:22 07/28/2024 Departure Time: 10:35 07/28/2024 Measurements Wt: 93.0 kg, Ht/Didier: 67.0 in, BMI: 32.11 Initial Vital Sign Measured Time BP MAP HR RR O2Sat ETCO2 Temp Pain GCS RTS 07:51 07/28/2024 152/114 127 125 18 96% 98.6 F 10 Time Seen: 09:58 07/28/2024. Arrived- By private vehicle. Historian- patient. Independent historian- family. HISTORY OF PRESENT ILLNESS (Patient was endorsed 70 shift change. Patient slipped and fell last evening he slipped on the ice. When he did he actually did not fall he actually caught himself was complaining of low back pain he has been taking [id number] medications as well as heat to the area when he came in his given pain medications he feels much better at this time. Denies any numbness or tingling except on his right gluteal area he gets pain going down his leg into his knee has a 6/10 now has a sharp pain that is worse when he sits. He denies any head pain. Deep tendon reflexes were intact his gait sensation was intact although he has been over when walks.). It is still present. PAST HISTORY Hypertension 1 of 8 Narrative Surgeries: Appendectomy Biopsy: Body Site lung Hernia Repair Shoulder Surgery: Body Site right Medications: lisinopril 20 mg-hydrochlorothiazide 25 mg tablet: 1 tablet once a day. Allergies: no known drug allergies Home Medications/Allergy Information Source: patient - Christine MaTracee, 07/28/2024 07:47 EST ADDITIONAL NOTES The nursing notes have been reviewed. PHYSICAL EXAM Appearance: Alert. No acute distress. HEENT: Normal external inspection. Eyes: Pupils equal, round and reactive to light. Neck: Normal inspection. Neck nontender. Painless ROM. CVS: Normal heart rate and rhythm. Heart sounds normal. Respiratory: No respiratory distress. Breath sounds normal. Abdomen: Normal inspection. Soft and nontender. Back: Normal inspection. No tenderness. No painless ROM. Limited ROM in the back. (patient has generalized tenderness with twisting and side bending of his low back. No swelling ecchymosis or bruising. His deep tendon reflexes are intact his lower extremity. Gait and station is intact. He has no bowel bladder dysfunction.). Skin: Normal skin color. Normal skin turgor. Extremities: Extremities exhibit normal ROM. Neuro: Oriented X 3. Mood/affect normal. 2 of 8 Narrative LABS, X-RAYS, AND EKG Diagnostic Study Tests: CT ABDOMEN/PELVIS WO Final EXAM Date: 07/28/2024 08:24:00 EST MsgRcvd: 07/28/2024 10:02 EST [facility] [id number] Patient: DONAVAN GALEANO Phone#: : 1970 Age: 54 Gender: M Pt. Type: ER Account: [id number] Location: [facility] Ordering: DR. STORM DELVALLE Exam Date: 07/28/2024/8:11 Family Phys: SAGAR TAYLORGalina Charge Code: [id number] Physician: [place] Order #: [id number] Dose#: 20.10 PROCEDURE: CT ABDOMEN/PELVIS WITHOUT CONTRAST COMPARISON: None. INDICATIONS: Vomiting. TECHNIQUE: CT images were created without intravenous contrast. All CT scans at this facility use dose modulation, iterative reconstruction, and/or weight based dosing when appropriate to reduce radiation dose to as low as reasonably achievable. IV CONTRAST: No IV contrast used,0ml TOTAL DOSE: 20.10 CTDIvol(mGy) FINDINGS: LIVER: Normal. No enlargement, atrophy, abnormal density, or significant focal lesion. BILIARY: The gallbladder is absent. Surgical clips are present in the gallbladder fossa. PANCREAS: Normal. No lesion, fluid collection, ductal dilatation, or atrophy. SPLEEN: Normal. No enlargement or focal lesion. KIDNEYS: Normal. No mass, obstruction, or calcification. ADRENALS: Normal. No mass or enlargement. AORTA/VASCULAR: Normal. No aneurysm. RETROPERITONEUM: Normal. No mass or adenopathy. 3 of 8 Narrative BOWEL/MESENTERY: Normal. No visible mass, obstruction, or bowel wall thickening. ABDOMINAL WALL: Normal. No mass or hernia. URINARY BLADDER: Normal. No visible focal wall thickening, lesion, or calculus. PELVIC NODES: Normal. No adenopathy. PELVIC ORGANS: Normal. No visible mass. Pelvic organs appropriate for patient age. BONES: Degenerative changes of the spine are present. There is disc space narrowing at L5-S1. There is minimal retrolisthesis. Degenerative changes of the hips are present. There is no evidence of acute fracture involving spine pelvis or hips. There is a 10 millimeters sclerotic focus in the right ilium, possible benign bone island. LUNG BASES: Minimal diaphragmatic pleural calcificati (more content not included)... [facility] ED SUPER BILLon 07-30-2024 ED SUPER BILL [address] [address] [id number] 07/28/2024 Patient: DONAVAN GALEANO Sex: Male : 1970 Age: 54y Item Facility Professional Category Description Code Code Quantity Fee Total Nurse/E/M EMERGENCY 736176 1 $0.00 $0.00 DEPARTMENT VISIT HIGH/URGENT SEVERITY (25897-42) Nurse/IV/IM/Infusions IM/SQ (84765) 569350 3 $0.00 $0.00 Grand Total $0.00 Providers Herman Correa D.O. Chief Complaint BACK PAIN. Principal Diagnoses 0920: Patient states he is still pretty uncomfortable, still walking about the room, though less discomfort, awaiting results of tests, will re-medicate. 1 of 2 [facility] Acute traumatic pain in the lower back. Muscle strain of the low back. Fall on the same level by slipping. ICD-10 Codes G89.11: Acute pain due to trauma W01.0XXA: Fall on same level from slipping, tripping and stumbling without subsequent striking against object, initial encounter S39.012A: Strain of muscle, fascia and tendon of lower back, initial encounter 2 of 2 [facility] ED VISIT SUMMARYon ED VISIT SUMMARY Visit Overview Visit Overview [address] [address] [id number] 07/28/2024 Patient: DONAVAN GALEANO Sex: Male : 1970 Age: 54y 07/30/2024 01:24 AM EST ED Arrival:07:41 07/28/2024 EST Status: Recent Travel:no Language:eng Adv Directive: Isolation Status: Ethnicity:N Fall Risk:no risk Infectious Disease Exposure:no Measurements:5'7 / 170.2 Self-Harm Status:risk Sepsis Screen:negative cm 205.0 lb / 93.0 kg Chief Complaint:BACK PAIN and (PT reports slipped on ice but never fell ) ALLERGIES No Known Drug Allergies HOME MEDICATIONS lisinopril 20 mg-hydrochlorothiazide 25 mg tablet: 1 tablet once a day. PAST MEDICAL HISTORY / PROBLEMS Hypertension 1 of 3 Visit Overview PAST SURGICAL HISTORY Appendectomy Biopsy. lung Hernia Repair Shoulder Surgery. right SOCIAL HISTORY Smoking status: No Alcohol use: No Drug use: No ED COURSE MEDICATIONS GIVEN IN EMERGENCY DEPARTMENT 08:09 07/28/24 Ondansetron ODT PO 4 mg 08:10 07/28/24 HYDROmorphone (Dilaudid) IM 1 mg 08:11 07/28/24 KetorOLAC (Toradol) IM 30 mg 09:28 07/28/24 PredniSONE PO 40 mg 09:07/28/24 HYDROmorphone (Dilaudid) IM 0.5 mg IV SITE INFORMATION INTAKE OUTPUT REASSESMENT (most recent) 07:45 07/28/24. Ambulatory to room. (Pt c/o lower back pain since yesterday morning, states he slipped on ice and caught himself, states lower back was sore after event and has been worsening since.). GENERAL / NEURO / PSYCH: Alert. Oriented X 4. Appears in pain. The patient has pain-related numbness of the right leg and left leg. CVS: Pulses within normal limits. Capillary refill less than 2 seconds. EXTREMITIES: ROM of extremities within normal limits. BACK: Normal inspection of the neck and back. Limited ROM in the lumbar spine (decreased flexion) and (decreased extension). No neck or back tenderness. VITAL SIGNS First Vitals Last Vitals 2 of 3 Visit Overview First Vitals Last Vitals Temp 07:51 07/28/24 98.6 F Temp 10:35 07/28/24 BP 07:51 07/28/24 152/114 BP 10:35 07/28/24 167/104 HR 07:51 07/28/24 125 HR 10:35 07/28/24 111 RR 07:51 07/28/24 18 RR 10:35 07/28/24 O2 Sat 07:51 07/28/24 96% O2 Sat 10:35 07/28/24 Pain 07:51 07/28/24 10 Pain 10:35 07/28/24 ETCO2 07:51 07/28/24 ETCO2 10:35 07/28/24 GCS 07:51 07/28/24 GCS 10:35 07/28/24 RTS 07:51 07/28/24 RTS 10:35 07/28/24 PROCEDURES NURSING INTERVENTIONS LABS / STUDIES LABS / STUDIES ORDERED CT ABD/PEL wo Cont CT L-Spine wo Cont Urinalysis LABS / STUDIES PENDING IMPORT CT LUMBAR W/O CONTRAST CLINICAL IMPRESSION ACUTE TRAUMATIC PAIN IN THE LOWER BACK FALL ON THE SAME LEVEL BY SLIPPING MUSCLE STRAIN OF THE LOW BACK 3 of 3 [facility] ED VITALS FLOW SHEETon 07-30 ED VITALS FLOW SHEET Vitals Vital Sign Flow Sheet [address] [address] [id number] 07/28/2024 Patient: DONAVAN GALEANO Sex: Male : 1970 Age: 54y Measurements Wt: 93.0 kg, Ht/Didier: 67.0 in, BMI: 32.11 Measured Time BP MAP HR RR O2Sat ETCO2 Temp Pain GCS RTS 10:35 07/28/2024 167/104 126 111 10:35 07/28/2024 167/104 125 94 16 95% RA 4 10:34 07/28/2024 106 91% 09:15 07/28/2024 158/126 140 117 08:40 07/28/2024 16 8 07:51 07/28/2024 152/114 127 125 18 96% 98.6 F 10 1 of 1 [facility] CT ABDOMEN/PELVIS WOon 07-28 CT ABDOMEN/PELVIS [address] [address] Patient: DONAVAN GALEANOGen Phone#: : 1970 Age: 54 Gender: M Pt. Type: ER Account: [id number] Location: 2 Ordering: DR. STORM DELVALLE Exam Date: 07/28/2024/8:11 Family Phys: SAGAR REYES Charge Code: [id number] Physician: [place] Order #: [id number] Dose#: 20.10 PROCEDURE: CT ABDOMEN/PELVIS WITHOUT CONTRAST COMPARISON: None. INDICATIONS: Vomiting. TECHNIQUE: CT images were created without intravenous contrast. All CT scans at this facility use dose modulation, iterative reconstruction, and/or weight based dosing when appropriate to reduce radiation dose to as low as reasonably achievable. IV CONTRAST: No IV contrast used,0ml TOTAL DOSE: 20.10 CTDIvol(mGy) FINDINGS: LIVER: Normal. No enlargement, atrophy, abnormal density, or significant focal lesion. BILIARY: The gallbladder is absent. Surgical clips are present in the gallbladder fossa. PANCREAS: Normal. No lesion, fluid collection, ductal dilatation, or atrophy. SPLEEN: Normal. No enlargement or focal lesion. KIDNEYS: Normal. No mass, obstruction, or calcification. ADRENALS: Normal. No mass or enlargement. AORTA/VASCULAR: Normal. No aneurysm. RETROPERITONEUM: Normal. No mass or adenopathy. BOWEL/MESENTERY: Normal. No visible mass, obstruction, or bowel wall thickening. ABDOMINAL WALL: Normal. No mass or hernia. URINARY BLADDER: Normal. No visible focal wall thickening, lesion, or calculus. PELVIC NODES: Normal. No adenopathy. PELVIC ORGANS: Normal. No visible mass. Pelvic organs appropriate for patient age. BONES: Degenerative changes of the spine are present. There is disc space narrowing at L5-S1. There is minimal retrolisthesis. Degenerative changes of the hips are present. There is no evidence of acute fracture involving spine pelvis or hips. There is a 10 millimeters sclerotic focus in the right ilium, possible benign bone island. LUNG BASES: Minimal diaphragmatic pleural calcification is present in the right lower thorax. OTHER: Negative. Continued Report - Page 2 of 2 Patient: DONAVAN GALEANO Phone#: : 1970 Age: 54 Gender: M Pt. Type: ER Account: [id number] Location: 052 Ordering: DR. STORM DELVALLE Exam Date: 07/28/2024/8:11 Family Phys: SAGAR KIMMY Charge Code: 077245 Physician: [place] Order #: [id number] Dose#: [id number] CONCLUSION: 1. There is no evidence of acute fracture involving the spine, pelvis or hips. Degenerative changes are present. 2. There is no evidence of acute abdominal or pelvic abnormality. Dictated by: Lucinda Marquez MD on 07/28/2024 at 9:51 Approved by: Lucinda Marquez MD on 07/28/2024 at 9:59 Normal [facility] FOOT COMPLETE LTon FOOT COMPLETE LT [place] [address] Patient: DONAVAN GALEANO Phone#: : 1970 Age: 53 Gender: M Pt. Type: ER Account: [id number] Location: 052 Ordering: [facility] Exam Date: 03/20/2024/13:18 Family Phys: SAGAR REYES Charge Code: 685528 Physician: [place] Order #: [id number] Dose#: PROCEDURE: X-RAY FOOT LT COMPLETE MIN 3 VIEWS COMPARISON: None. INDICATIONS: Trauma. FINDINGS: BONES: Calcaneal spur measures 0.8 cm. No fracture or dislocation. SOFT TISSUES: Negative. No visible soft tissue swelling. EFFUSION: None visible. OTHER: Negative. CONCLUSION: No acute osseous abnormality. Dictated by: Anya Blanton MD on 03/20/2024 at 20:47 Approved by: Anya Blanton MD on 03/20/2024 at 20:50 Normal [facility] RIBS LT UNILAT W/CHEST EXPIR ATIONon 03-20-2024 RIBS LT UNILAT W/CHEST EXPIRATION [place] [address] Patient: DONAVAN GALEANO Kavon Phone#: : 1970 Age: 53 Gender: M Pt. Type: ER Account: [id number] Location: 052 Ordering: [facility] Exam Date: 03/20/2024/13:21 Family Phys: SAGAR REYES Charge Code: 099330 Physician: [place] Order #: [id number] Dose#: PROCEDURE: X-RAY RIBS LT UNILAT WITH EXPIRATION CHEST COMPARISON: None. INDICATIONS: Chest pain. FINDINGS: LUNGS: Normal. No significant pulmonary parenchymal abnormalities. VASCULATURE: Normal. Unremarkable pulmonary vasculature. CARDIAC: Normal. No cardiac silhouette abnormality or cardiomegaly. MEDIASTINUM: Normal. No visible mass or adenopathy. PLEURA: Normal. No effusion or pleural thickening. BONES: No appreciable acute osseous abnormality, specifically no appreciable acute rib fracture. Degenerative changes of the spine. OTHER: Negative. CONCLUSION: No appreciable rib fracture. Note: A nondisplaced fracture may not be evident on radiograph. Dictated by: Anya Blanton MD on 03/20/2024 at 20:50 Approved by: Anya Blanton MD on 03/20/2024 at 20:53 Normal [facility] OPERATIVE PROCEDURESon 10-26 OPERATIVE PROCEDURES [facility] OPERATIVE REPORT NAME ACCOUNT SEX AGE ADMIT DISCHARGE PT MED. RECORD# NUMBER DATE DATE TYPE WALESKA [id number] M 53 10/22/23 2 DONAVAN Cunningham [id number] ROOM: [facility] DATE OF : 1970 DICTATING PHYSICIAN: Italo Carlos DATE OF SURGERY: October 22, 2023 SURGEON: Italo Carlos MD RECEIVING WEIGHER: KAREN Sharma ANESTHESIOLOGIST: Ilir Huerta MD ANESTHETIC: General endotracheal with 1% lidocaine and 0.5% Marcaine without epinephrine locally. PREOPERATIVE DIAGNOSIS: Cholecystitis. POSTOPERATIVE DIAGNOSIS: Gallbladder absent. OPERATION PERFORMED: Laparoscopic cholecystectomy converted to a diagnostic laparoscopy. COMPLICATIONS: ESTIMATED BLOOD LOSS: DISPOSITION: Once the patient was recovered in the PACU, he was transferred to the floor on telemetry for 24 hour observation secondary to Anesthesias request as Anesthesia was concerned about his pulmonary function and history of sleep apnea without using CPAP at home. DESCRIPTION OF OPERATION: Following the initiation of general endotracheal anesthesia, the patient was sterilely prepped and draped in the usual sterile supine position. 1% lidocaine and 0.5% Marcaine without epinephrine were injected into the supraumbilical position. An 11 blade scalpel was then used to create a semi-circumferential supraumbilical incision. The incision was completed using electrocautery. Hemostasis was achieved using electrocautery as well. Blunt dissecting was used to dissect down to the level of the anterior abdominal fascia. The anterior abdominal fascia was grasped with 2 Deny clamps, and the abdomen entered using Metzenbaum scissors. A finger was then inserted through the defect, and the anterior Page 1 of 2 DONAVAN GALEANO Operative Report DONAVAN GALEANO : 1970 abdominal wall inspected. There were no anterior abdominal wall defects and/or adhesions. A 12 mm Haney trocar was secured into the supraumbilical position. The abdomen was insufflated with CO2 gas. A 5 mm 30 degree camera was inserted through the trocar and the abdomen inspected. There were no acute intraabdominal abnormalities. Under direct visualization, two 5 mm trocar sites were established in the right subcostal position and one 5 mm trocar sites was established in the subxiphoid position. Prior to establishment of these 5 mm trocar sites, the areas were anesthetized with 1% lidocaine and 0.5% Marcaine without epinephrine locally. The patient was then placed in the reverse Trendelenburg with left side down positioning. Attempts to withdraw the omentum from the edge of the liver proved futile as the omentum was densely adherent to the liver. The omentum was taken down in a tedious, but methodical manner using blunt dissection, sharp dissection, and electrocautery. Once we had the anatomical position of where the expected gallbladder fossa should be and was clearly visualized, the gallbladder was absent. Looking down into the triangle of Calot, a laparoscopic clip was appreciated. Thus, it was decided at this point that the patient most likely was erroneous and believing he still had his gallbladder, and in fact, the gallbladder was absent. The procedure was terminated at this point. The abdomen was then inspected with the laparoscope, and again no acute intraabdominal abnormalities were appreciated. The camera was then removed, the abdomen was allowed to desufflate. All ports were removed. The patient then returned to a neutral position. The supraumbilical anterior abdominal fascia was repaired using interrupted 0 Vicryl sutures, the dermis was repaired using interrupted 4-0 Vicryl sutures, and the skin was repaired using a 5-0 Monocryl. The subxiphoid and two right subcostal sites were also closed using a 5-0 Monocryl. All instrument and sponge counts were correct x2. The wounds were appropriately dressed and bandaged. The patient was then awakened, extubated, and taken to the PACU for further recovery. Dictated By: Italo Carlos MD 10/22/23 13:25 JOB #: [id number] Transcribed By: vita 10/23/23 08:57 Electronically signed by: E-SIGN DR. CARLOS 10/27/23 13:48 Page 2 of 2 DONAVAN GALEANO Operative Report Normal [facility] CBC (NO DIFF)on 10-13-2023 CBC panel Auto (Bld) Normal [facility] Comment on above: Result Comment: CBC( WITHOUT DIFFERENTIAL) Performed By: #### 2 11636 ####[facility],[address] [place] [address] 40341 Erythrocyte distribution width (RBC) [Ratio] 13.0 % Normal 12.0 - 15.6 [facility] Comment on above: Performed By: #### 2 55628 ####[facility],[address] [place] [address] 61045 Hematocrit (Bld) [Volume fraction] 51.2 % Normal 40.0 - 52.0 [facility] Comment on above: Performed By: #### 2 85574 ####[facility],[address] [place] [address] 15617 Hemoglobin (Bld) [Mass/Vol] 17.5 g/dL Normal 13.0 - 17.5 [facility] Comment on above: Performed By: #### 2 88330 ####[facility],[address] [place] [address] 51502 MCH (RBC) [Entitic mass] 31 pg Normal 27 - 33 [facility] Comment on above: Performed By: #### 2 30923 ####[facility],[address] [place] [address] 56494 MCHC 34 X10 3 Normal 32 - 36 [facility] Comment on above: Performed By: #### 2 93133 ####[facility],[address] [place] [address] 76825 MCV (RBC) [Entitic vol] 91 fL Normal 81 - 98 [facility] Comment on above: Performed By: #### 2 07630 ####[facility],[address] [place] [address] 10234 PLATELET 170 x10EE3/UL Normal 150 - 450 [facility] Comment on above: Performed By: #### 2 33579 ####[facility],[address] [place] [address] 57369 Platelet mean volume (Bld) [Entitic vol] 10.0 fL Normal 6.4 - 10.5 [facility] Comment on above: Performed By: #### 2 67055 ####[facility],[address] [place] [address] 13365 RBC 5.60 x 10EE6/UL Normal 4.50 - 6.00 [facility] Comment on above: Performed By: #### 2 02118 ####[facility],[address] [place] [address] 83215 WBC 9.9 x 10EE3/UL Normal 4.5 - 10.8 [facility] Comment on above: Performed By: #### 2 33012 ####[facility],[address] [place], [place] [address] CMP with eGFRon 10-13-2023 AGE 53 years Normal [facility] Comment on above: Performed By: #### 2 29536 #### [facility],[address] [place] [address] 46672 Albumin [Mass/Vol] 3.5 g/dL Normal 3.4 - 5.0 [facility] Comment on above: Performed By: #### 2 87839 #### [facility],[address] [place] [address] 22554 Albumin/Globulin [Mass ratio] 1.0 {ratio} Normal 0.9 - 1.6 [facility] Comment on above: Performed By: #### 2 54727 #### [facility],[address] [place] [address] 00458 ALK PHOS 130 U/L High 46 - 116 [facility] Comment on above: Performed By: #### 2 26901 #### [facility],[address] [place] [address] 73053 ALT [Catalytic activity/Vol] 56 U/L Normal 16 - 63 [facility] Comment on above: Performed By: #### 2 78054 #### [facility],[address] [place] [address] 33841 Anion gap [Moles/Vol] 12 mmol/L Normal 10 - 20 [facility] Comment on above: Performed By: #### 2 39532 #### [facility],[address] [place] [address] 50027 AST [Catalytic activity/Vol] 26 U/L Normal 15 - 37 [facility] Comment on above: Performed By: #### 2 51303 #### [facility],[address] [place] [address] 77384 B/C RATIO 13 ratio Normal 0 - 30 [facility] Comment on above: Performed By: #### 2 65300 #### [facility],[address] [place] [address] 66330 Bilirubin [Mass/Vol] 0.5 mg/dL Normal 0.2 - 1.0 [facility] Comment on above: Performed By: #### 2 15265 #### [facility],[address] [place] [address] 83349 Calcium [Mass/Vol] 9.3 mg/dL Normal 8.5 - 10.1 [facility] Comment on above: Performed By: #### 2 01795 #### [facility],[address] [place] [address] 57052 Chloride [Moles/Vol] 103 mmol/L Normal 98 - 107 [facility] Comment on above: Performed By: #### 2 34517 #### [facility],[address] [place] [address] 71404 CMP with eGFR Normal [facility] Comment on above: Result Comment: COMP REHENSIVE METABOLIC PANEL Performed By: #### 2 95814 #### [facility],[address] [place] [address] 69051 CO2 [Moles/Vol] 29.8 mmol/L Normal 21.0 - 32.0 [facility] Comment on above: Performed By: #### 2 52610 #### [facility],[address] [place] [address] 87314 Creatinine [Mass/Vol] 1.52 mg/dL High 0.70 - 1.30 [facility] Comment on above: Performed By: #### 2 96215 #### [facility],[address] [place] [address] 49725 eGFR 48 ML/MINUTE Low 60 - 999 [facility] Comment on above: Performed By: #### 2 61405 #### [facility],[address] [place] [address] 24785 eGFR(AA) 58 ML/MINUTE Low 60 - 999 [facility] Comment on above: Result Comment: ACCO RDING TO THE NATIONAL KIDNEY DISEASE EDUCATION PROGRAM(NKDE), A NORMAL eGFR IS A VALUE GREATER THAN OR EQUAL TO 60 ML/MIN/1.73 SQ METERS. CHRONIC KIDNEY DISEASE: <60mL/MIN/1.73 SQ METERS KIDNEY FAILURE: <15mL/MIN/1.73 SQ METERS THIS TEST SHOULD ONLY BE USED FOR PATIENTS 18 YEARS OF AGE AND OLDER. Performed By: #### 2 42567 #### [facility],[address] [place] [address] 10964 Globulin (S) [Mass/Vol] 3.5 g/dL Normal 1.5 - 3.8 [facility] Comment on above: Performed By: #### 2 43240 #### [facility],[address] [place] [address] 09103 Glucose [Mass/Vol] 114 mg/dL High 74 - 106 [facility] Comment on above: Performed By: #### 2 40007 #### [facility],[address] [place] [address] 46339 Potassium [Moles/Vol] 3.6 mmol/L Normal 3.5 - 5.1 [facility] Comment on above: Performed By: #### 2 80052 #### [facility],[address] [place] [address] 63966 Protein [Mass/Vol] 7.0 g/dL Normal 6.4 - 8.2 [facility] Comment on above: Performed By: #### 2 68254 #### [facility],[address] [place] [address] 85863 Sodium [Moles/Vol] 141 mmol/L Normal 136 - 145 [facility] Comment on above: Performed By: #### 2 53461 #### [facility],[address] [place] [address] 41862 Urea nitrogen [Mass/Vol] 20 mg/dL High 7 - 18 [facility] Comment on above: Performed By: #### 2 80298 #### [facility],[address] [place] [address] 42690 LIPASEon 10-13-2023 Lipase [Catalytic activity/Vol] 283.0 U/L High 15.0 - 78.0 [facility] Comment on above: Result Comment: *PLE ASE NOTE THAT RANGES FOR LIPASE HAVE CHANGED OF 06/27/23 DUE TO AN ASSAY UPDATE BY THE MOLDER HELPER.THE NEW ASSAY RANGE IS 6-250 U/L, WITH A REFERENCE RANGE OF 16-77 U/L. Performed By: #### 2 08490 ####[facility],[address] [place] [address] 48380 NM HIDA SCANon 10-03-2023 NM HIDA SCAN [place] [id number] Patient: WALESKA DONAVAN D. Phone#: : 1970 Age: 53 Gender: M Pt. Type: Out Account: [id number] Location: [facility] Ordering: SAGAR REYES Exam Date: 10/03/2023/11:30 Family Phys: Charge Code: [id number] Physician: [place] Order #: [id number] Dose#: PROCEDURE: HIDA SCAN COMPARISON: [place], [place], HIDA SCAN, 01/24/2015, 13:56. INDICATIONS: Right upper quadrant pain TECHNIQUE: Informed consent was obtained. A routine radionuclide hepatobiliary scan was performed after intravenous injection of 7.5 mCi Tc Choletec with sequential acquisitions every 5 minutes for one hour. PHARMACEUTICAL(S): Tc-99m LAKISHA derivative (see dose listed above). Cholecystokinin (Kinevac ) (see dose listed above). FINDINGS: BILIARY DUCTS: Normal radioisotopic biliary excretion. GALLBLADDER: Not visualized INTESTINE: Normal with no evidence of common biliary ductal obstruction. EJECTION FRACTION: Ejection fraction could not be evaluated. The gallbladder is nonvisualized. OTHER: Negative. CONCLUSION: 1. Gallbladder is not visualized suspicious for cholecystitis.. 2. The common bile duct is visualized at 15 minutes. Dictated by: Lucinda Marquez MD on 10/03/2023 at 13:49 Approved by: Lucinda Marquez MD on 10/06/2023 at 17:01 Normal [facility] US RUQ (GB/PANCREAS)on 09-25 US RUQ (GB/PANCREAS) [place] [address] Patient: DONAVAN GALEANO Phone#: : 1970 Age: 53 Gender: M Pt. Type: Out Account: [id number] Location: [facility] Ordering: LOUISA KING Exam Date: 09/26/2023/9:29 Family Phys: SAGAR REYES Charge Code: 779453 Physician: [place] Order #: [id number] Dose#: PROCEDURE: RUQ (GB) ULTRASOUND COMPARISON: [place], EXERCISE STRESS TEST, 09/12/2023, 7:00. [facility], CT, CHEST W/O CON, 08/22/2023, 13:05. [facility], RUQ (GB), 01/09/2015, 7:54. INDICATIONS: Right upper abdominal pain FINDINGS: LIVER: The right hepatic lobe is difficult to penetrate. BILIARY: The gallbladder is not visualized. Possibility of contracted gallbladder with calculi should be considered. The gallbladder is not visualized on recent CT of the thorax. PANCREAS: Pancreas is obscured by bowel gas. RIGHT KIDNEY: Normal. No mass or obstruction. OTHER: Negative. CONCLUSION: 1. Gallbladder is not visualized. Gallbladder is not visualized on recent CT of the thorax. 2. The left hepatic lobe and pancreas are not well visualized due to interfering bowel gas. DICTATED BY: LUCINDA MARQUEZ MD ON 09/26/2023 AT 16:06 APPROVED BY: LUCINDA MARQUEZ MD ON 09/26/2023 AT 16:12 Normal [facility] Hemoglobin A1con 09-04-2018 Hemoglobin A1c/Hemoglobin.tota l mass fraction (Bld) 5.4 % Normal 4.3-5.6 [facility] Hemoglobin A1c/Hemoglobin.tota l mass fraction (Bld) 108 mg/dL Normal [facility] Lab 6 Minute Walk Teston 019 6 Minute Walk Test [facility] Pulmonary Services/Neurology [address] [place] [address] MR#: [id number] Acct: [id number] Name: CA GALEANOIRA Cunningham Rep #: [id number] : 1970 48 From: Adeel Whitley MD Referring Dr: Adeel Whitley MD Date: Ordering Dr: Sex: M C Location: CT PSN 6 Minute Walk Test - 6 Minute Walk Test 6 Minute Walk Test: 6 Minute Walk Test PSN:6-Minute Walk Test Start: 07/24/18 09:41 Freq: Status: Active Protocol: RESP.6MINW Document 07/24/18 09:41 CESAR (Rec: 07/24/18 09:43 SFENTON [id number]) 6 Minute Walk Test Date Performed 07/24/18 [...] is indicated at this time. 07/25/18 0554 Date Adeel Whitley MD CC: Date Dictated: 07/24/18 1628 Date Transcribed: 07/24/181627 Assembler: Adeel Whitley MD Signed Normal [facility] Chest without Contraston Chest without Contrast [facility] Imaging Services [address] [place] [address] Chest without Contrast MR#: [id number] Acct: [id number] Name: DONAVAN GALEANO Rep #: [id number] : 1970 M 48 From: Noman Tavera MD PCP: Sagar Reyes MD Status: REG CLI Study: Chest without Contrast Date of Exam: 07/24/18 Exam# [id number] Ordering Dr: Adeel Whitley MD STUDY: CT [...] CC: Adeel Whitley MD; Sagar Reyes MD Assembler: Signed Normal [facility] Pulmonary Function Teston Pulmonary Function Test [facility] Pulmonary Services/Neurology [address] [place] [address] MR#: [id number] Acct: [id number] Name: DONAVAN GALEANO Rep #: [id number] : 1970 47 From: Sandeep Kim DO Referring Dr: Adeel Whitley MD Status: REG CLI Ordering Dr: Date: Location: [facility] Sex: M C INTRODUCTION: The patient is [...] pulmonary function studies available for comparison. 07/17/181138 Date Sandeep Kim DO CC: Adeel Whitley MD; Sagar Reyes MD Date Dictated: 07/17/181136 Date Transcribed: 07/17/181136 Assembler: MARIO Signed Normal [facility] Pulmonary Visit Reporton Pulmonary Visit Report [facility] Pulmonary Medicine of [address] [place] [address] OFFICE VISIT Date of Service: 07/01/18 MR#: [id number] Acct: [id number] Name: DONAVAN GALEANO Rep #: [id number] : 1970 Provider: Adeel Whitley MD Age/Sex: 47/M Location: [facility] Status: Signed Assessment AND Plan Problems 1. [...] No underlying etiology is noted in patient's [facility] documentation. 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 Patient denies [...] Visit Reasons: Shortness of breath DME Vendor: [employer] Accompanied by: Self Allergies No Known Allergies Allergy (Verified 07/01/18 07:59) Medications Amitriptyline HCl [Elavil] 100 mg PO QHS 10/10/17 [History Confirmed 07/01/18] Fentanyl 1 ea TD X1 10/10/17 [History Confirmed 07/01/18] Folic Acid 1 mg PO DAILY@0800 10/10/17 [History Confirmed 07/01/18] Lisinopril/Hydrochlorothi azide [Zestoretic 20-12.5 mg Tablet] 1 ea PO [...] IHSAN (obstructive sleep apnea) G47.33 07/01/18 0835 Date Adeel Whitley MD Cosign Signature: Date (if applicable) CC: Sagar Reyes MD; Antwon Kim MD Normal [facility] Basic Metabolic Profile (BMP )on 10-10-2017 Calcium mass conc 9.0 mg/dL Normal 8.5-10.1 [facility] Comment on above: Performed By: #### L 500.2500 #### [facility] [address] [place], [place], [id number] Chloride molar conc 108 mmol/L High 98-107 [facility] Comment on above: Performed By: #### L 500.2500 #### [facility] [address] [place], [address] CO2 molar conc 28.0 mmol/L Normal 21.0-32.0 [facility] Comment on above: Performed By: #### L 500.2500 #### [facility] [address] [place], [address] Creatinine mass conc 1.24 mg/dL Normal 0.70-1.30 [facility] Comment on above: Result Comment: The validity of the calculated GFR AND GFRAA in patients over 70 years has not been determined. Clinical correlation is essential. Performed By: #### L 500.2500 #### [facility] [address] [place], [address] EST GFR - AA 80 mL/min Normal >60 [facility] Comment on above: Result Comment: Afri can Tristanian GFR Calc Performed By: #### L 500.2500 #### [facility] [address] [place], [address] Estimated CRCL 68.11 ml/min Normal [facility] Comment on above: Performed By: #### L 500.2500 #### [facility] [address] [place], [address] GAP 7 Normal 5-15 [facility] Comment on above: Performed By: #### L 500.2500 #### [facility] [address] [place], [address] GFR/1.73 sq M predicted among non-blacks MDRD vol rate/area (S/P/Bld) 66 mL/min/{1.73_m2} Normal >60 [facility] Comment on above: Result Comment: Non- GFR Calc Performed By: #### L 500.2500 #### [facility] [address] [place], [address] Glucose mass conc 112 mg/dL High 74-106 [facility] Comment on above: Result Comment: Fast ing Glucose result from 100 to 125 mg/dL suggests IMPAIRED HOMEOSTASIS per A.D.A. criteria. Please note revised GLUCOSE reference range effective 2017. Performed By: #### L 500.2500 #### [facility] [address] [place], [address] Potassium molar conc 3.7 mmol/L Normal 3.5-5.1 [facility] Comment on above: Performed By: #### L 500.2500 #### [facility] [address] [place], [address] Sodium molar conc 143 mmol/L Normal 136-145 [facility] Comment on above: Performed By: #### L 500.2500 #### [facility] [address] [place], [address] Urea nitrogen mass conc 17 mg/dL Normal 7-18 [facility] Comment on above: Performed By: #### L 500.2500 #### [facility] [address] [place], [address] Urea nitrogen mass conc 13.7 RATIO Normal 10-20 [facility] Comment on above: Performed By: #### L 500.2500 #### [facility] [address] [place], [address] Brain/Head without Contrasto n 10-10-2017 Brain/Head without Contrast [facility] Imaging Services [address] [place] [address] Brain/Head without Contrast MR#: [id number] Acct: [id number] Name: DONAVAN GALEANO Rep #: [id number] : 1970 M 47 From: Hero Stanton MD PCP: Antwon Kim Status: REG ER Study: Brain/Head without Contrast Date of Exam: 10/10/17 Exam# [id number] Ordering Dr: Sen Umana MD STUDY: CT [...] Hero Stanton MD at 10:38 EDT Tel [phone], Service support , CC: Sen Umana MD; Antwon Kim Assembler: Signed Normal [facility] CBC W/Diff, Automatedon 09-28 Absolute Neut 5.7 X10 3/uL Normal 2.0-7.7 [facility] Comment on above: Performed By: #### L 100.0100 #### [facility] [address] [place], [address] Basophils/100 WBC (Bld) 0.5 % Normal 0-1 [facility] Comment on above: Performed By: #### L 100.0100 #### [facility] [address] [place], [address] Eosinophils/100 WBC (Bld) 1.1 % Normal 0-5 [facility] Comment on above: Performed By: #### L 100.0100 #### [facility] [address] [place], [address] Erythrocyte distribution width Ratio (RBC) 13.9 % Normal 11.6-14.6 [facility] Comment on above: Performed By: #### L 100.0100 #### [facility] [address] [place], [address] Hematocrit Volume Fraction (Bld) 45.8 % Normal 40-54 [facility] Comment on above: Performed By: #### L 100.0100 #### [facility] [address] [place], [address] Hemoglobin mass conc (Bld) 15.0 g/dL Normal 13.0-16.5 [facility] Comment on above: Performed By: #### L 100.0100 #### [facility] [address] [place], [address] IM GRAN % 0.200 % Normal 0.0-0.9 [facility] Comment on above: Result Comment: IG% - Immature Granulocytes (promyelocytes, myelocytes and metamyelocytes) > 1% indicates that a LEFT SHIFT is Present. Performed By: #### L 100.0100 #### [facility] [address] [place], [address] Lymphocytes #/vol (Bld) 1.84 X10 3/ul Normal 0.83-4.51 [facility] Comment on above: Performed By: #### L 100.0100 #### [facility] [address] [place], [address] Lymphocytes/100 WBC (Bld) 22.1 % Normal 19-41 [facility] Comment on above: Performed By: #### L 100.0100 #### [facility] [address] [place], [address] MCH Entitic mass (RBC) 29.4 pg Normal 27.0-32.0 [facility] Comment on above: Performed By: #### L 100.0100 #### [facility] [address] [place], [address] MCHC mass conc (RBC) 32.8 g/gl Normal 32-36 [facility] Comment on above: Performed By: #### L 100.0100 #### [facility] [address] [place], [address] MCV Entitic volume (RBC) 89.8 fL Normal 80-94 [facility] Comment on above: Performed By: #### L 100.0100 #### [facility] [address] [place], [address] Monocytes/100 WBC (Bld) 8.4 % Normal 0-10 [facility] Comment on above: Performed By: #### L 100.0100 #### [facility] [address] [place], [address] Neutrophils/100 WBC (Bld) 67.7 % Normal 47-70 [facility] Comment on above: Performed By: #### L 100.0100 #### [facility] [address] [place], [address] Platelet mean volume Entitic volume (Bld) 11.1 fL Normal 6.2-12.0 [facility] Comment on above: Performed By: #### L 100.0100 #### [facility] [address] [place], [address] Platelets #/vol (Bld) 157 10*3/uL Normal 150-450 [facility] Comment on above: Performed By: #### L 100.0100 #### [facility] [address] [place], [address] RBC #/vol (Bld) 5.10 M/mm3 Normal 4.6-6.2 [facility] Comment on above: Performed By: #### L 100.0100 #### [facility] [address] [place], [address] RDW SD 45.7 fl High 35.1-43.9 [facility] Comment on above: Performed By: #### L 100.0100 #### [facility] [address] [place], [address] WBC #/vol (Bld) 8.3 10*3/uL Normal 4.4-11.0 [facility] Comment on above: Performed By: #### L 100.0100 #### [facility] [address] [place], [address] CTA Head W/WO Contraston CTA Head W/WO Contrast [facility] Imaging Services [address] [place] [address] CTA Head W/WO Contrast MR#: [id number] Acct: [id number] Name: DONAVAN GALEANO Rep #: [id number] : 1970 47 From: Hero Stanton MD PCP: Antwon Kim Status: REG ER Study: CTA Head W/WO Contrast Date of Exam: 10/10/17 Exam# [id number] Ordering Dr: Sen Umana MD STUDY: CTA [...] There is no demonstrated aneurysm of the false pass of Frazier. There is no demonstrated abnormality of the visualized brain. CT/CTA Head W/WO Contrast IMPRESSION: Normal false pass of Frazier without a demonstrated aneurysm or hemodynamically significant stenosis. Electronically Signed: Hero Stantno MD at 12:26 EDT Tel [phone], Service support , CC: Sen Umana MD; Antwon Kim Assembler: Signed Normal [facility] Emergency Department Summary on 10-10-2017 Emergency Department Summary [facility] Medical Records Department [address] [place] [address] Emergency Department Summary 10/10/17 0944 MR#: [id number] Acct: [id number] Name: DONAVAN GALEANO Rep #: [id number] : 1970 47 From: Sen Umana MD [...] brain is normal. CTA head shows normal false pass of Frazier with no aneurysm. EKG is [...] 2. Hypertension. This note was generated with tipple.me dictation software. It may contain incorrect words, spelling, [...] problems, contact your Primary Care Provider. Call [facility] ([phone]) or report to the closest Emergency Room. Call 911 if necessary. 10/10/17 1749 Date Sen Alcantaraigner Signature (If Indicated): Date CC: nAtwon Kim [facility] HOSPon 01-01-2017 HOSP Infusion Center ([facility]) JACQUELINE GALEANO ([id number]) 1970 MDate Time Provider Department01/01/17 2:30 PM TREATMENT RM 7 [facility] During your visit today, we recorded the following information about you: Pulse Blood pressure 79/minute 126/87Referring Provider: JUAN ANTONIO ALLEN [[id number]]Allergies As of Date: 01/01/2017(No Known Allergies)Date Reviewed: 01/01/2017Reviewed by: Luz Elena Yoon (Rn) MIGUELINA Bautista - Fully AssessedReason for Visit: Phlebotomy [1172]Primary Visit Diagnosis:Hereditary hemochromatosis (HCC) [E83.110] 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][facility] [[id number]] Order #: [id number]: 1 STANDING [facility] [[id number]] Order #: [id number]: 1 STANDINGPrescriptions as of 01/01/2017 Sig: FOLIC ACID 1 MG TABLET Take 1 tablet by mouth once d* ACETAMINOPHEN 500 MG TABLET Take 500 mg by mouth every 8 * LISINOPRIL 20 MG-HYDROCHLOROT* Take 0.5 tablets by mouth twi* GABAPENTIN 600 MG TABLET Take 600 mg by mouth three ti* NAPROXEN 500 MG TABLET 2 tabs dailyProblem List As Of Date 01/01/2017 Noted Resolved 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 [place] Hemoglobinon 017 Hemoglobin mass conc (Bld) 13.0 g/dL Normal 13.0-17.0 [facility] Comment on above: Result Comment: Test performed at: [facility], [address] [place] [address]., [place] [address]. Encounters Encounter Date Encounter Type Care Provider Facility Start: 09-17-2024 ambulatory SAGAR LARSON [facility] Start: 09-17-2024 Encounter for genera l adult medical examination without abnormal findings SAGAR LARSON [facility] Start: 07-28-2024 End: 07-28-2024 Emergency department patient visit SAGAR LARSON [facility] Start: 03-20-2024 ambulatory SAGAR LARSON [facility] Start: 03-20-2024 Encounter for genera l adult medical examination without abnormal findings SAGAR LARSON [facility] Start: 03-20-2024 End: 03-20-2024 Emergency department patient [facility] Start: 10-22-2023 End: 10-23-2023 ambulatory [facility] Start: 10-13-2023 End: 10-13-2023 ambulatory [facility] Start: 10-03-2023 End: 10-03-2023 ambulatory [facility] Start: 09-26-2023 End: 09-26-2023 ambulatory LOUISA PAC [facility] Start: 2018 Patient encounter procedure Adeel Whitley Facility:[facility] Start: 07-17-2018 Patient encounter procedure Adeel Gutierrez Facility:[facility] Start: 07-01-2018 End: 07-01-2018 Patient encounter procedure Adeel Whitley [facility] Start: 10-10-2017 End: 10-10-2017 Emergency department patient visit Sen Umana Facility:[facility] Start: 01-01-2017 End: 01-02-2017 Ambulatory LAPMAN [facility]am Procedures Date Procedure Procedure Detail Performing Clinician Start: 10-14-2017 12 lead ECG Adeel Arth ur Payers Date Payer Category Payer Medicare [id number] 2018 Medicare [id number] 2017 Medicare [id number] 2017 Self-pay 1970 Unknown [id number] 2.16.8 [id number] 1970 Unknown [id number] 2.16.8 40.1.332648.3.579.2.651 1970 Unknown [id number] 2.16.8 40.1.171058.3.579.2.651 1970 Unknown [id number] 2.16.8 40.1.060771.3.579.2.651 1970 Unknown [id number] 2.16.8 40.1.198218.3.579.2.651 1970 Unknown [id number] 2.16.8 40.1.020331.3.579.2.651 1970 Unknown [id number] 2.16.8 40.1.636668.3.579.2.651 1970 Unknown [id number] 2.16.8 40.1.707533.3.579.2.651 Medicaid [id number] Unknown [id number] 2.16.8 40.1.346922.3.579.2.462 Unknown [id number] 2.16.8 40.1.531172.3.579.2.462 Unknown [id number] 2.16.8 40.1.424149.3.579.2.462 Unknown [id number] 2.16.8 40.1.570466.3.579.2.462 Unknown [id number] 2.16.8 40.1.416235.3.579.2.462 Unknown [id number] 2.16.8 40.1.969203.3.579.2.462 Clinical Note 07-30-2024 Note Date & Type Note Facility 07-30-2024 Note Discharge Instructio ns Discharge Summary [address] [address] [id number] 07/28/2024 Patient: DONAVAN GALEANO Sex: Male : 1970 Age: 54y Thank you for visiting [facility]. You have been evaluated today by Storm Delvalle D.O. for the following condition(s): Principal Diagnosis 0920: Patient states he is still pretty uncomfortable, still walking about the room, though less discomfort, awaiting results of tests, will re-medicate. Patient Signature Facility [employer] Date/Time General Instructions with ExitWriter [address] [address] [id number] 07/28/2024 Patient: DONAVAN GALEANO Sex: Male : 1970 Age: 54y Thank you for visiting [facility]. You have been evaluated today by Storm Delvalle D.O. for the following condition(s): 1 of 4 Discharge Instructions Principal Diagnosis 0920: Patient states he is still pretty uncomfortable, still walking about the room, though less discomfort, awaiting results of tests, will re-medicate. Discharge Summary [address] [address] [id number] 07/28/2024 Patient: DONAVAN GALEANO Sex: Male : 1970 Age: 54y Thank you for visiting [facility]. You have been evaluated today by Cachorro Becerra D.O. for the following condition(s): Principal Diagnosis Acute traumatic pain in the lower back. Muscle strain of the low back. Fall on the same level by slipping. INSTRUCTIONS Apply ice. Prescription Medications: Percocet 5 mg-325 mg tablet: Take 1 tablet by mouth every six to eight hours for 4 days, dispense 12 tablet. Refills 0. Pharmacy: [facility] [address] [place] [address]. prednisone 20 mg tablet: Take 1 tablet by mouth once a day for 6 days, dispense 6 tablet. Refills 0. Pharmacy: [facility] [id number] [place] [address]. 2 of 4 Discharge Instructions Follow-up with: Michelet Cooper MD,[facility], [place] [facility], Orthopedic, Phone: [phone], [address] [address]. Follow up in two days. Call for an appointment. (rest. ice 15 minutes every 4 6 hours. return if increasing pain problems or any concerns. also follow up with her family doctor Dr. Reyes). Patient Signature Facility [employer] Date/Time General Instructions with ExitWriter [address] [place] [address] [id number] 07/28/2024 Patient: DONAVAN GALEANO Sex: Male : 1970 Age: 54y Thank you for visiting [facility]. You have been evaluated today by Cachorro Becerra D.O. for the following condition(s): Principal Diagnosis Acute traumatic pain in the lower back. Muscle strain of the low back. Fall on the same level by slipping. INSTRUCTIONS Apply ice. Prescription Medications: 3 of 4 Discharge Instructions Percocet 5 mg-325 mg tablet: Take 1 tablet by mouth every six to eight hours for 4 days, dispense 12 tablet. Refills 0. Pharmacy: [facility] [address] [place] [address]. prednisone 20 mg tablet: Take 1 tablet by mouth once a day for 6 days, dispense 6 tablet. Refills 0. Pharmacy: [facility] [address] [place] [address]. Follow-up with: Michelet Cooper MD,[facility], [place] [facility], Orthopedic, Phone: [phone], [address] [address]. Follow up in two days. Call for an appointment. (rest. ice 15 minutes every 4 6 hours. return if increasing pain problems or any concerns. also follow up with her family doctor Dr. Reyes). 4 of 4 [facility] Discharge summary note 10-27-2023 Note Date & Type Note Facility 10-27-2023 Note [facility] DISCHARGE SUMMARY NAME ACCOUNT SEX AGE ADMIT DISCHARGE PT MED. RECORD# NUMBER DATE DATE TYPE WALESKA, [id number] M 53 10/22/23 10/23/23 2 DONAVAN Cunningham [id number] ROOM: [facility] DATE OF : 1970 ATTENDING PHYSICIAN: Italo Carlos FINAL DIAGNOSES: 1. Abdominal pain. 2. Hypertension. 3. Obstructive sleep apnea. 4. Pulmonary hemosiderosis. 5. Chronic gastroesophageal reflux disease. PROCEDURES: On October 22, 2023, the patient was taken to the operative arena for a laparoscopic cholecystectomy. It was eventually determined that he was status post cholecystectomy in 2014. Thus, the procedure was converted to a diagnostic laparoscopy. The abdominal contents were inspected, and no abnormalities were found. ATTENDING PHYSICIAN: Dr. Italo Carlos. CONSULTANTS: Hospitalist. HISTORY OF PRESENT ILLNESS: On October 22, 2023, the patient was taken to the operative arena for a planned laparoscopic cholecystectomy. Intraoperatively, it was determined that he was already status post cholecystectomy. Eventual deep dive research of his chart following the case revealed that he had a laparoscopic cholecystectomy in January of 2015. HOSPITAL COURSE: Following the case, Anesthesia thought it would be prudent to observe him for 24 hours, as he has severe obstructive sleep apnea as well as pulmonary hemosiderosis and borderline controlled hypertension, and he did not have CPAP at home. Overnight in the hospital, he remained afebrile with vital signs stable and within normal limits. In general, he was alert, oriented and appropriate. Abdomen was soft, nontender and nondistended. Thus, he was discharged in good condition. DISPOSITION: Home. MEDICATIONS ON DISCHARGE: The patient was given Jay as needed for pain and Colace as needed for constipation. He was instructed to resume all previous home medications. DISCHARGE INSTRUCTIONS/PLAN: Diet: Regular. Activity: The patient was instructed not to lift more than 20 pounds or the equivalent of exertion for a period of 4 Page 1 of 2 DONAVAN GALEANO Discharge Summary DONAVAN Marisa WALESKA : 1970 weeks. Otherwise, activity as tolerated. Work: The patient was given a 2-week excused absence from work and reminded to remain on light duty and activity until November 19, 2023. Follow up in Dr. Carlos's clinic on November 07, 2023, at 9:15 a.m. Dictated By: Italo Carlos MD 10/23/23 10:58 JOB #: [id number] Transcribed By: milo 10/23/23 12:26 Electronically signed by: E-SIGN DR. CARLOS 10/27/23 13:48 Page 2 of 2 DONAVAN GALEANO Discharge Summary [facility] Summary Purpose Family History No Family History Records FoundNo Family History Records FoundNo Family History Records FoundNo Family History Records Found Advance Directives No Advanced Directives Records FoundNo Advanced Directives Records FoundNo Advanced Directives Records FoundNo Advanced Directives Records Found Additional Source Comments (unrecognized sect ion and content) No Status Records FoundNo Status Records FoundNo Status Records FoundNo Status Records Found INFORMATION SOURCE (unrecogn ized section and content) DATE CREATED AUTHOR 12/24/2017 [facility] DATE CREATED AUTHOR AUTHOR'S ORGANIZ ATION 08/18/2018 [facility] DATE CREATED AUTHOR AUTHOR'S ORGANIZ ATION 09/06/2018 [facility] DATE CREATED AUTHOR AUTHOR'S ORGANIZ ATION 09/19/2024 [facility] FOR RECORDS PERTAINING TO PATIENTS WHO ARE OR HAVE BEEN ENROLLED IN A CHEMICAL DEPENDENCY/SUBSTANCEABUSE PROGRAM, SOME INFORMATION MAY BE OMITTED. This clinical summary was aggregated from multiple sources. Caution should be exercised in using it in the provision of clinical care. This summary normalizes information from multiple sources, and as a consequence, information in this document may materially change the coding, format and clinical context of patient data. In addition, data may be omitted in some cases. CLINICAL DECISIONS SHOULD BE BASED ON THE PRIMARY CLINICAL RECORDS. [facility] provides no warranty or guarantee of the accuracy or completeness of information in this document.
[2025-01-22] MEDS: Orphenadrine 60 MG/2 ML Ampul 30 MG IM (19:34)
[2025-01-22 19:38] VITALS: BMI 37.0
--- NOTE | 2025-01-22 19:50 | RAD_ITS ---
PROCEDURE: L/S SPINE MIN 4 VIEWS 01/22/2025 REASON FOR EXAM: LOW BACK PAIN, FALL TECHNIQUE: L/S SPINE MIN 4 VIEWS FINDINGS: Multilevel osteophytic spurring and mild disc space narrowing. Chronic anterior wedging of T12, L1 and L2. No acute compression deformity. No pars defect RAD/L/S Spine Min 4 Views IMPRESSION: Degenerative disc disease without acute deformity Reading Location: [facility]
[2025-01-22 20:59] VITALS: BP 132/85; PULSE 80; RESP 16; TEMP 36.9; O2SAT 99
== END 2025-01-22 21:04 | disposition home or self-care (01) ==
PROVIDERS: Emergency Provider Emergency Medicine; PCP Student in an Organized Health Care Education/Training Program; Visit Provider Emergency Medicine
DX: S39.012A Strain of muscle, fascia and tendon of lower back, initial encounter (principal); N18.30 Chronic kidney disease, stage 3 unspecified; I12.9 Hypertensive chronic kidney disease with stage 1 through stage 4 chronic kidney disease, or unspecified chronic kidney disease; Z79.899 Other long term (current) drug therapy; Z90.49 Acquired absence of other specified parts of digestive tract; W18.43XA Slipping, tripping and stumbling without falling due to stepping from one level to another, initial encounter
CPT/HCPCS: 72110; 96372; 99282